=== PATIENT | male | born 1935 | race Caucasian/White ===

== ENCOUNTER 2018-05-20 16:29 | Observation (INO) | payer MEDICARE, OTHER, SELFPAY ==
--- NOTE | 2018-05-20 | DI.ECHO.S_ITS ---
[facility]---------+ [facility] +---------+ : : [address] : : : : [id number] : : : : Phone: [phone] Echocardiogram Report + + :Name: EDGAR FELIPE Study Date: 05/21/2018 Height: 73 in : :[facility] Weight: 224 lb: : Gender: Male BSA: 2.3 m2 : :: 1935 Age: 82 yrs : :Reason For Study: TIA : : Performed By: Felisha Abel : :Referring: LISA OLIVEIRA : + + Interpretation Summary The ejection fraction is estimated to be 60-65%. There is mild tricuspid regurgitation. The right ventricular systolic pressure is estimated to be at least 23 mmHg based on an estimated right atrial pressure of 3 mm Hg. The aortic arch is mildly enlarged. Compared to the prior echo report on 2011, there is no significant change. Procedure: A two-dimensional transthoracic echocardiogram with color flow and Doppler was performed. The study quality was technically adequate. Comparison is made with the echocardiogram of 04/02/2011. The heart rate ranged between 62-65 bpm during the study. Left Ventricle: Proximal septal thickening is noted. The left ventricle is normal in size, wall thickness, and systolic function without any focal wall motion abnormalities. The ejection fraction is estimated to be 60-65%. Right Ventricle: The right ventricle is normal size. Right ventricular systolic function is at the lower limits of normal. Atria: Both atria are normal in size. There is no Doppler evidence for an interatrial shunt. Mitral Valve: The mitral valve is normal in structure and function. There is trace mitral regurgitation. Aortic Valve: The aortic valve is trileaflet. The aortic valve is mildly calcified. There is trace aortic regurgitation. Tricuspid Valve: The tricuspid valve is normal in structure and function. There is mild tricuspid regurgitation. The right ventricular systolic pressure is estimated to be at least 23 mmHg based on an estimated right atrial pressure of 3 mm Hg. Pulmonic Valve: The pulmonic valve is not well seen, but is grossly normal. There is a trace or physiologic amount of pulmonic regurgitation. Great Vessels: The aortic root is mildly dilated. The ascending aorta is normal in size. The aortic arch is mildly enlarged. The pulmonary is not well visualized. The IVC is of normal diameter and collapses greater than 50% with a sniff. This suggests a low right atrial pressure of 3 mm Hg. Pericardium/ Pleura There is no pericardial effusion. There is no pleural effusion. MMode/2D Measurements & Calculations LVIDd: 4.7 cm LVOT diam: 2.2 cm LVIDs: 3.0 cm Ao root diam: 4.3 cm FS: 36.7 % asc Aorta Diam: 3.5 cm IVSd: 0.88 cm Ao Arch Diam (distal): 3.4 cm LVPWd: 0.86 cm LV guallpa. diameter/BSA (cm/m^2): 2.1 LV sys. diameter/BSA (cm/m^2): 1.3 LA A2 area: 19.1 cm2 RA long axis: 5.1 cm LA A4 area: 18.4 cm2 RA area: 15.8 cm2 LA length (vol): 6.1 cm RA vol: 41.9 ml LA vol: 48.9 ml RA : 18.6 ml/m2 LA vol index: 21.7 ml/m2 RVD1 (basal): 3.2 cm TAPSE: 1.8 cm Doppler Measurements & Calculations Ao V2 max: 99.9 cm/sec LVOT Max Colby: 74.4 cm/sec Ao V2 mean: 70.7 cm/sec LV V1 max P.2 mmHg Ao max P.0 mmHg LV V1 VTI: 18.3 cm Ao mean P.1 mmHg JANKI(I,D): 3.6 cm2 Ao V2 VTI: 20.0 cm JANKI(V,D): 2.9 cm2 sev ratio: 0.92 JANKI indexed to BSA (cm^2/m^2): 1.6 MV E max colby: 35.4 cm/sec TR max colby: 225.7 cm/sec MV A max colby: 82.4 cm/sec TR max P.4 mmHg MV E/A: 0.43 Med Peak E' Colby: 5.7 cm/sec E/E' med: 6.2 Lat Peak E' Colby: 5.2 cm/sec E/E' lat: 6.9 E/e' average: 6.6 MV dec time: 0.53 sec SV(LVOT): 72.3 ml Reading Physician:12:41 PM
--- NOTE | 2018-05-20 | DI.MRI.S_ITS ---
PROCEDURE: MR STROKE Pre- and post-contrast brain MRI, non-contrast brain MR angiogram, pre- and postcontrast neck MR angiogram INDICATIONS: Poss left lacunar stroke, TIA TECHNIQUE: Brain: Noncontrast axial T1 spin echo, axial T2 fast spin echo, sagittal and axial FLAIR, coronal T2 fast spin echo, axial gradient echo, axial diffusion and ADC through the brain. After the administration of contrast, axial 3D VIBE of the cranial vasculature and brain. Brain MRA: Non-contrast 3-D time of flight MR angiogram, with multiple nxuvbvc-ioqvwhdfb-scnlewvzze (MIP) reformats performed. Neck MRA: Axial and sagittal TruFISP through the neck. Coronal dynamic MR angiogram during administration of contrast in the arterial and venous phases, with 3-dimenstional vdgyxpn-ktxjpxbxd-aivqtcmbyd (MIP) reformats constructed from subtraction images. COMPARISON: [facility], , STROKE PROTOCOL, 12/11/2015, 11:33. FINDINGS: Image quality: Excellent. BRAIN: CSF spaces: Ventricles are normal in size and shape. Basal cisterns are patent. No extra-axial fluid collections. Brain: No intracranial bleeds or mass effects. Perdomo-white matter interface is normal. Diffusion weighted images show no acute ischemic insults. Moderate diffuse volume loss. Mild degree of patchy high FLAIR signal within the periventricular and subcortical white matter, consistent with small vessel ischemic disease. Brainstem appears normal. Normal intravascular flow voids are present. No abnormal intracranial enhancement. Skull and face: Calvarial marrow signal is normal. Orbits appear normal. Sinuses: Sinuses and mastoids are clear. BRAIN MR ANGIOGRAM: Anterior circulation: Intracranial internal carotid arteries are normal in size and enhancement. Right A1 segment is not seen, possibly congenitally absent. The flow within the paired anterior cerebral arteries is otherwise normal and symmetric. The flow within the middle cerebral arteries is normal and symmetric. The anterior communicating artery is seen. No stenoses, occlusions, or aneurysms. Posterior circulation: The visualized portions of the vertebral arteries demonstrate normal caliber, and join to form a normal appearing basilar artery. The flow within the posterior cerebral arteries is normal and symmetric. No stenoses, occlusions, or aneurysms. NECK MR ANGIOGRAM: Carotids: Great vessels demonstrate a conventional anatomy as they arise from the aortic arch. The origins of the common carotid arteries appear patent. The calibers and courses of both common carotid arteries are normal. The bifurcation regions appear normal bilaterally. The internal carotid arteries demonstrate normal course and caliber. Posterior circulation: The origins of the vertebral arteries appear patent. More superior portions of both vertebral arteries demonstrate normal course and caliber, and join to form a normal appearing basilar artery. Miscellaneous: Subclavian arteries appear patent. Pre-contrast images through the neck show no soft tissue abnormalities. IMPRESSION: BRAIN MRI: 1. No recent infarct. 2. Volume loss and small vessel ischemic disease. BRAIN MR ANGIOGRAM: Negative cerebral MR angiography. NECK MR ANGIOGRAM: 1. No internal carotid artery stenosis bilaterally. 2. Patent bilateral vertebral arteries. Dictated by: Amol Ashton M.D. on 05/21/2018 at 13:17 Approved by: Amol Ashton M.D. on 05/21/2018 at 13:22
[2018-05-20 16:38] VITALS: BP 195/99; PULSE 92; RESP 16; TEMP 37.7; O2SAT 94
--- NOTE | 2018-05-20 16:42 | ED_ITS ---
HPI - Neuro Symptoms/Deficit General Chief Complaint: Neuro Symptoms/Deficit Stated Complaint: not making any sense Time Seen by Provider: 05/20/18 16:40 Source: patient and family Mode of arrival: ambulatory Limitations: no limitations History of Present Illness HPI Narrative: Patient is an 82-year-old male. Here approximately 15-20 minutes after the onset of symptoms. He stated that he was talking on the phone with his grandson when he had a sudden onset of not being able to find his words and somewhat confused per his . She states that potentially his symptoms have improved a little bit but he is not back to ?normal? he denies any other associated symptoms. does report that he has had mini strokes in the past. Related Data Home Medications Medication Instructions Recorded Confirmed PreserVision AREDS 1 cap PO BID 05/20/18 05/20/18 aspirin 81 mg PO DAILY 05/20/18 05/20/18 Previous Rx's Medication Instructions Recorded lisinopril 20 mg tablet 20 mg PO DAILY #90 tab 03/22/18 Allergies Allergy/AdvReac Type Severity Reaction Status Date / Time caffeine Allergy Verified 05/20/18 16:38 prednisone Allergy Verified 05/20/18 16:38 Review of Systems Constitutional Denies fatigue, Denies fever(s), Denies headache(s) and Denies weakness Eyes Denies change in vision and Denies diplopia ENT Ears, Nose, Mouth, and Throat: Denies vertigo, Denies dizziness, Denies headache(s), Denies disequilibrium and Denies sore throat Cardiovascular Denies chest pain, Denies syncope, Denies palpitations and Denies dyspnea Respiratory Denies dyspnea Gastrointestinal Gastrointestinal: Denies abdominal pain, Denies nausea and Denies vomiting Musculoskeletal Denies myalgias, Denies arthralgias and Denies numbness Integumentary/Breasts Denies lesions and Denies rash Neurologic Reports abnormal speech, Denies confusion, Denies vertigo, Denies dizziness, Denies syncope, Denies headache(s), Denies numbness, Denies seizure-like activity, Denies paresthesias, Reports tremor(s), Denies disequilibrium and De nies weakness Comments: Problems finding words and slurring words Psychiatric Denies confusion Endocrine Denies fatigue and Denies palpitations Hematologic/Lymphatic Denies easy bleeding and Denies easy bruising Comments: Not on anticoagulation Allergic/Immunologic Denies urticaria PFSH Medical History Hypertension (Acute) TIA (transient ischemic attack) (Acute) Surgical History History of cardiac radiofrequency ablation (RFA) History of cataract removal with insertion of prosthetic lens Status post appendectomy Status post knee surgery Status post radical cystoprostatectomy Family History Father Hypertension Prostate ca Social History marital status: lives independently: Yes Family History Father Hypertension Prostate ca Social History marital status: lives independently: Yes Exam Initial Vital Signs Initial Vital Signs: Vital Signs Temperature 99.9 F H 05/20/18 16:38 Pulse Rate 92 H 05/20/18 16:38 Respiratory Rate 16 05/20/18 16:38 Blood Pressure 195/99 H 05/20/18 16:38 Pulse Oximetry 94 05/20/18 16:38 Const General: cooperative, comfortable, well developed, well groomed and No acute distress Orientation: alert, awake and oriented x3 HENMT Head: normal to inspection and normocephalic Nose: external nose normal Resp Effort & Inspection: normal respiratory effort Auscultation: clear to auscultation bilaterally Cardio Rate: regular rate Rhythm: regular rhythm Pulses: radial pulses present GI Inspection: non-distended Palpation: soft Skin Lesions: no lesions Rashes: no rashes Neuro General: alert, awake and oriented x3 Cranial Nerves: CN's II-XI intact bilaterally Cognition: normal cognition Speech: expressive aphasia Gait: normal gait Motor: muscle tone normal throughout Sensory Exam: no sensory deficits noted Coordination: xstnog-hf-rcxh test normal and pedu-ll-uimm test normal Extrem General: normal to inspection and capillary refill normal Psych Appearance: grossly normal and well kempt Mood: congruent mood Scores GCS Gabrielle coma scale eye opening: Spontaneous Gabrielle coma scale verbal response: Orientated Kelly coma scale motor response: Obey commands Gabrielle coma scale total score: 15 NIH Stroke Scale Level of Conciousness: Alert, keenly responsive Ask month/age: Answers both questions correctly. Open/close eyes, close hand: Performs both tasks correctly Best gaze horizontal: Normal Visual chaudhary: No visual loss Facial palsy: Normal symetrical movement Left arm drift: No drift for full 10 sec Right arm drift: No drift for full 10 sec Left leg drift: No drift for full 10 sec Right leg drift: No drift for full 10 sec Limb ataxia: Absent Sensory on face/arms/legs: Normal, no sensory loss Best language: Mild to moderate, slurs some words Dysarthria: Mild to mod,some slurring Extinction or inattention: No abnormality Total NIH Stroke scale score: 2 Course Orders Ordered: ED Orders 05/20/18 16:40 CT head/brain wo con Stat Basic Metabolic Panel Stat Complete Blood Count AUTO DIFF Stat Ethanol (ETOH) Stat Partial Thromboplastin Time Stat Prothrombin Time INR Stat Troponin I Stat 05/20/18 16:42 CT angio head and neck Stat 05/20/18 16:55 EKG-12 Lead Stat Sodium Chloride (Normal Saline 0.9%) 1,000 mls @ 150 mls/hr IV CONT CHRIS Last Admin: 05/20/18 16:48 Dose: 150 mls/hr Discontinued Medications Aspirin (Aspirin Chew) 243 mg PO NOW ONE Stop: 05/20/18 17:42 Last Admin: 05/20/18 17:45 Dose: 243 mg Vital Signs - 8 hr 05/20/18 16:38 05/20/18 16:58 05/20/18 17:11 Temperature 99.9 F H Pulse Rate 92 H 90 86 Respiratory Rate 16 16 16 Blood Pressure 195/99 H Blood Pressure [Right Arm] 179/82 H Pulse Oximetry 94 96 05/20/18 17:13 05/20/18 18:11 Temperature Pulse Rate 87 87 Respiratory Rate 16 16 Blood Pressure Blood Pressure [Right Arm] 168/87 H 152/73 H Pulse Oximetry 96 92 MDM - Neuro Symptoms/Deficit Lab Data Attestation: I reviewed the patient's lab results. Result diagrams: 05/20/18 16:40 05/20/18 16:40 Lab Results 05/20/18 05/20/18 05/20/18 Range/Units 16:40 16:40 16:40 WBC 11.4 H (4.5-11.0) X10^3/uL RBC 5.07 (4.5-5.9) X10^6/uL Hgb 16.2 (13.5-17.5) g/dL Hct 48.2 (41-53) % MCV 94.9 (80-100) fL MCH 31.9 (26-34) PG MCHC 33.6 (30-36) % RDW 13.0 (11.6-14.8) % Plt Count 276 (150-400) X10^3/uL Neut % (Auto) 61.0 (50-75) % Lymph % (Auto) 27.5 (25-40) % Gila % (Auto) 9.5 (3-14) % Eos % (Auto) 0.9 L (2-4) % Baso % (Auto) 1.1 (0-2) % Neut # (Auto) 6900 (2749-7059) /uL Lymph # (Auto) 3100 (1647-2783) /uL Gila # (Auto) 1100 H (0-900) /uL Eos # (Auto) 100 (0-450) /uL Baso # (Auto) 100 (0-100) /uL PT 10.8 (10.1-12.7) SECONDS INR 0.9 (0.9-1.3) APTT 32 (26.4-36.2) SECONDS Sodium 135 L (137-145) mmol/L Potassium 4.3 (3.4-5.1) mmol/L Chloride 97 L (98-107) mmol/L Carbon Dioxide 24 (22-32) mmol/L BUN 18 (9-20) mg/dL Creatinine 1.00 (0.66-1.25) mg/dL Estimated GFR > 60.0 (>60) mL/min BUN/Creatinine Ratio 18.0 (6-22) Glucose 95 (80-110) mg/dL Calcium 9.2 (8.4-10.2) mg/dL Troponin I < 0.012 (0.01-0.034) ng/mL Ethyl Alcohol 28 mg/dL Point of Care Testing Glucose POC [address] scan - head: Radiologist's impression: [place] [address] CT Scan Report Signed Patient: Dong Cummings WMR#: [id number] : 8Acct:[id number] Age/Sex: 82 / MDate of Service: 05/20/18 Loc: ED Accession Number: [id number] Procedure: CT head/brain wo con Ordering Provider: Prasanna Mcneil D.O. PROCEDURE: CT HEAD/BRAIN WO CON INDICATIONS: possible stroke TECHNIQUE: Noncontrast 4.5 mm thick angled axial sections acquired from the foramen magnum to the vertex, with coronal and sagittal reformats. For radiation dose reduction, the following was used: automated exposure control, adjustment of mA and/or kV according to patient size. COMPARISON: [facility], , STROKE PROTOCOL, 12/11/2015, 11:33. FINDINGS: Image quality: Excellent. CSF spaces: Basal cisterns are patent. No extra-axial fluid collections. The ventricles are symmetric in size and shape. Brain: No intracranial bleeds or masses. There is cerebral volume loss for age, with resultant ventricular and sulcal prominence. There are periventricular and deep white matter chronic small vessel ischemic changes. Old, small, bilateral basal pain lacunar infarcts. There is intracranial internal carotid artery atherosclerosis. Skull and face: Calvarium and visualized facial bones appear intact, without suspicious lesions. Sinuses: Visualized sinuses and mastoids are clear. IMPRESSION: 1. No acute intracranial disease process. 2. No intracranial hemorrhage. Dictated by: Aida Gloria MD, PhD on 05/20/2018 at 16:52 Approved by: Aida Gloria MD, PhD on 05/20/2018 at 16:54 CTA head and neck: Radiologist's impression: [place] [address] CT Scan Report Signed Patient: Dong Cummings WMR#: [id number] : 8Acct:[id number] Age/Sex: 82 / MDate of Service: 05/20/18 Loc: ED Accession Number: [id number] Procedure: CT angio head and neck Ordering Provider: Prasanna Mcneil D.O. PROCEDURE: CT ANGIO HEAD AND NECK INDICATIONS: Possible stroke. Speech difficulty. TECHNIQUE: After the administration of intravenous contrast, 1 mm thick sections acquired from the aortic arch through the [place] of [place]. Post-contrast 4.5 mm thick sections then re-acquired from the foramen magnum to the vertex. 3-dimensional lmbodbp-grbqpktfo-xiwambyfsa (MIP) and/or volume rendering reformats were acquired of the central intracranial vasculature and neck separately. COMPARISON: [facility], MR, STROKE PROTOCOL, 12/11/2015, 11:33. [facility], CT, CT HEAD/BRAIN WO CON, 05/20/2018, 16:42. FINDINGS: Image quality: Excellent. BRAIN: CSF spaces: There is mild cerebral volume loss with prominence of the ventricles and sulci. Basal cisterns are patent. No extra-axial fluid collections. Brain: No intracranial mass or mass effect. No hematoma collections. Perdomo- white matter interface appears preserved. There are periventricular and subcortical areas of hyperattenuation consistent with moderate chronic small vessel ischemic changes. A small focal hypodensity within the left iverson radiata is consistent with a prior lacunar infarct. Skull and face: Calvarium and facial bones appear intact, without suspicious lesions. Orbits appear normal. Sinuses: Sinuses and mastoids are clear. HEAD CT ANGIOGRAPHY: Anterior circulation: Intracranial internal carotid arteries are patent bilaterally. The anterior cerebral arteries are patent bilaterally. There is an absent A1 segment of the right anterior cerebral artery likely representing a developmental variant. The remainder of the right anterior cerebral artery is supplied through the anterior communicating artery from the left side. The middle cerebral arteries appear patent bilaterally. No high-grade stenosis, occlusion, discrete filling defects, or aneurysms identified. Posterior circulation: Visualized portions of the vertebral arteries demonstrate normal caliber, and join to form a patent basilar artery. The posterior cerebral arteries appear patent bilaterally. No high-grade stenosis, occlusion, discrete filling defects, or aneurysms identified. NECK CT ANGIOGRAPHY: Carotid system: The great vessels demonstrate conventional anatomy as they arise from the aortic arch. The origins of the common carotid arteries appear patent. The common carotid arteries demonstrate normal caliber and courses. The bifurcation regions are both widely patent. The internal carotid arteries demonstrate normal calibers and courses. Posterior circulation: The origins of the vertebral arteries both appear widely patent. The more superior extracranial portions of both vertebral arteries also demonstrate normal courses and calibers. They join to form a normal appearing basilar art adrien. Soft tissues: Visualized neck soft tissues demonstrate no suspicious abnormalities. Bones: No suspicious bony lesions. Visualized cervical spine demonstrates multilevel lfaj-gx-yleovpck degenerative disc disease and facet arthropathy. IMPRESSION: 1. No high-grade stenosis or occlusion of the central intracranial arteries for head and neck arteries. The carotid bulbs appear widely patent. 2. 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 The remainder of the right TERESA is supplied through the anterior communicating artery from the left. 3. Moderate chronic white matter small vessel ischemic changes and mild cerebral volume loss. There is a likely prior lacunar infarct in the left iverson radiata. Any quantitative measurements of stenosis were performed using NASCET criteria. Dictated by: Agus Quezada M.D. on 05/20/2018 at 16:19 Approved by: Agus Quezada M.D. on 05/20/2018 at 16:30 ECG Data Attestation: I personally reviewed and interpreted this ECG as follows: Prior ECG tracings: not available for review Interpretation: Sinus rhythm Second-degree AV block type 2 with 1 dropped beat One PVC Ventricular rate 86 Right bundle branch block No ST T wave changes MDM Narrative Medical decision making narrative: During his hospital stay his NIH went from 2 to 0. His agrees that all of his presenting symptoms have resolved. He took a baby aspirin prior to arrival. I gave him another 3 baby aspirin to make a full dose aspirin. Discussed the case with Dr. Goodrich with the hospitalist team who will admit the patient for a TIA workup. Discussed the admission with the patient and his . They expressed understanding and agreement. Discharge Plan Departure Patient Disposition: Admitted as Observation Clinical Impression: Transient cerebral ischemia Qualifiers: Transient cerebral ischemia type: unspecified Qualified Code(s): G45.9 - Transient cerebral ischemic attack, unspecified Hypertension Qualifiers: Hypertension type: unspecified Qualified Code(s): I10 - Essential (primary) hypertension
--- NOTE | 2018-05-20 16:47 | PC.NURSE ---
spouse reports, while he was on the phone, she noted that pt was having slurred speech. pt hx of tia 2 years ago. denies fever,coughing,vomiting or diarrhea pt on lisinopril 20mg and 81mg aspirin. nih negative, but spouse states, speech not his normal baseline. wt 104.2kg via bedscale.
[2018-05-20] MEDS: SODIUM CHLORIDE 0.9% 1,000 ML 150 ML IV (16:48)
[2018-05-20 16:49] LABS: Add Manual Diff / Slide Review NO; Basophils Absolute Auto 100 /uL (0-100); Basophils Percent Auto 1.1 % (0-2); Eosinophils Absolute Auto 100 /uL (0-450); Eosinophils Percent Auto 0.9 % (2-4); Hematocrit 48.2 % (41-53); Hemoglobin 16.2 g/dL (13.5-17.5); Lymphocytes Absolute Auto 3100 /uL (1100-4500); Lymphocytes Percent Auto 27.5 % (25-40); Mean Corpuscular HGB Conc 33.6 % (30-36); Mean Corpuscular Hemoglobin 31.9 PG (26-34); Mean Corpuscular Volume 94.9 fL (80-100); Monocytes Absolute Auto 1100 /uL (0-900); Monocytes Percent Auto 9.5 % (3-14); Neutrophils Absolute Auto 6900 /uL (1500-7000); Platelet Count 276 X10^3/uL (150-400); Red Blood Cell Count 5.07 X10^6/uL (4.5-5.9); White Blood Cell Count 11.4 X10^3/uL (4.5-11.0)
[2018-05-20 16:56] LABS: INR 0.9 (0.9-1.3); Prothrombin Time 10.8 SECONDS (10.1-12.7)
[2018-05-20 16:58] VITALS: BP 179/82; PULSE 90; RESP 16; O2SAT 96
[2018-05-20 16:58] LABS: PTT Partial Thromboplastin Tim 32 SECONDS (26.4-36.2)
[2018-05-20 17:00] LABS: Blood Urea Nitrogen 18 mg/dL (9-20); Calcium 9.2 mg/dL (8.4-10.2); Carbon Dioxide 24 mmol/L (22-32); Chloride 97 mmol/L (98-107); Estimated Glomerular Filt Rate > 60.0 mL/min (>60); Glucose 95 mg/dL (80-110); HEMOLYSIS < 15 (0-50); Potassium 4.3 mmol/L (3.4-5.1); Sodium 135 mmol/L (137-145)
[2018-05-20 17:03] LABS: Ethanol (ETOH) 28 mg/dL
[2018-05-20 17:11] VITALS: PULSE 86; RESP 16; O2SAT 98
[2018-05-20 17:12] LABS: Troponin I < 0.012 ng/mL (0.01-0.034)
[2018-05-20 17:13] VITALS: BP 168/87; PULSE 87; RESP 16; O2SAT 96
[2018-05-20] MEDS: ASPIRIN 81 MG TAB 243 MG PO (17:45)
[2018-05-20 18:11] VITALS: BP 152/73; PULSE 87; RESP 16; O2SAT 92
[2018-05-20 19:21] VITALS: BMI 29.6
[2018-05-20 20:00] VITALS: BP 159/74; PULSE 88; RESP 19; TEMP 36.7
[2018-05-20] MEDS: ENOXAPARIN 40 MG/0.4 ML SYRINGE SUBCUT (22:27)
[2018-05-21] VITALS: BP 145/70; PULSE 74; RESP 18; TEMP 36.9; O2SAT 97
--- NOTE | 2018-05-21 00:43 | PC.NURSE ---
Nasal swab for resp. panel collected & sent to the lab. Applied bilateral SCD's after 5 mins. he C/O that he will not be able to sleep. Requested to turn off his SCD's, instructed to do legs exercises q1 hr, x10 when he's awake. Will cont. POC & monitor.
[2018-05-21 01:04] LABS: Adenovirus Not Detected (Not Detect); Bordetella pertussis Not Detected (Not Detect); Chlamydophila pneumoniae Not Detected (Not Detect); Coronavirus 229E Not Detected (Not Detect); Coronavirus HKU1 Not Detected (Not Detect); Coronavirus NL 63 Not Detected (Not Detect); Coronavirus OC43 Not Detected (Not Detect); Human Metapneumovirus Not Detected (Not Detect); Human Rhinovirus/Enterovirus Not Detected (Not Detect); Influenza A Not Detected (Not Detect); Influenza B Not Detected (Not Detect); Mycoplasma pneumoniae Not Detected (Not Detect); Parainfluenza Virus 1 Not Detected (Not Detect); Parainfluenza Virus 2 Not Detected (Not Detect); Parainfluenza Virus 3 Not Detected (Not Detect); Parainfluenza Virus 4 Not Detected (Not Detect); Respiratory Syncytial Virus Not Detected (Not Detect)
--- NOTE | 2018-05-21 02:44 | P.HP_ITS ---
History of Present Illness Date Patient Seen: 05/20/18 Time Patient Seen: 19:45 Chief complaint: not making any sense Narrative: This is an 82-year-old male patient with a history of hypertension, arrhythmias, chronic neck pain, and prostate cancer status post prostatectomy who presents to the emergency room with an acute episode of confusion and difficulty word finding. The patient states he was talking to his grandson on the phone when he suddenly states he was talking ?gibberish? and became acutely confused. He reports an associated symptom blurring of vision but no diplopia or visual field cuts. Patient has had a history of macular degeneration which is been stable. The patient reports 1 previous episode of similar presentation that lasted only a few minutes occurring approximately 5 years ago. The patient reports no prodromal symptoms no recent illness or cold symptoms including fevers or chills, headaches or dizziness, nasal congestion or sore throat. He reports no complaints of chest pain or palpitations, shortness of breath or exertional dyspnea. He does have a large ventral hernia but denies abdominal pain, nausea or vomiting, constipation or diarrhea. The patient reports no difficulty urinating and has nocturia 3 times nightly. Patient arrived in the ER at 4:38 p.m. which time he is found to have a low- grade fever of 99.9, heart rate of 92 and hypertensive at 195/99 with respiratory rate of 16 and pulse oximetry of 94. The patient's blood pressure subsequently improved to 152/73 without intervention. By the time the patient has arrived at the ER which is 20 min post onset of symptoms the patient states are abating his initial NIH scale was 2 and on re-evaluation later was 0. The patient received aspirin for total of 325 mg as he is on 81 mg daily. He underwent a CT of the brain which was negative and a CT angio demonstrated moderate chronic white matter small-vessel ischemic changes and mild cerebral volume loss. It also identifies unlikely prior lacunar infarct in the left iverson radiata. Labs are evaluated with patient found to have a white count of 11.4 hematocrit of 16.2 and hematocrit 48.2 with platelets of 276. His coags were unremarkable and his troponin is negative at 0.012. On electrolytes he slightly low on his sodium 135 has good renal function with a BUN is 18 and creatinine 1.0 and nonfasting glucose of 95. Patient is admitted to the hospital for monitoring and workup TIA. Patient History Medical History Arrhythmia, atrial (Acute) Chronic neck pain (Acute) Hemorrhoids (Acute) Hypertension (Acute) TIA (transient ischemic attack) (Acute) Ventral hernia (Acute) Surgical History History of cardiac radiofrequency ablation (RFA) History of cataract removal with insertion of prosthetic lens Status post appendectomy Status post knee surgery Status post radical cystoprostatectomy Family History Father Hypertension Prostate ca Mother [place] chorea Sister Congestive heart failure Social History marital status: household members: spouse lives independently: Yes Smoking Status: Former smoker alcohol intake: current Family & Social History Social History: household members spouse Prior Living Arrangements RV lives independently Yes Safety & Behavioral: Feels Safe in Current Yes Environment Been Physically Hurt or No Threatened By a Person Suicidal Ideation Description None Suicide Plan Description No Plan Tobacco & Substance use: Smoking Status Former smoker alcohol intake current alcohol intake frequency 0-2 drinks per day Substance Use Type does not use Comment: The patient lives in a mobile home with his to whom he has been for 50 years. The patient's parents are post with his father having hypertension and prostate cancer and his mother [place] chorea. He has 1 sister who from heart failure and has to children both in good health. Occupation: Transition Manager, but builder Smoking: The patient reports smoking 1 pack per day for 22 years and quit 30 years ago Alcohol: Wine each evening Substance use: Patient denies recreation pharmaceuticals, herbal or cannabis products Advanced directives: patient wishes to be a full code and designates his Shaila as his surrogate decision maker. Meds Home Medications Medication Instructions Recorded Confirmed Type lisinopril 20 mg tablet 20 mg PO DAILY #90 tab 03/22/18 05/20/18 Rx PreserVision AREDS 1 cap PO BID 05/20/18 05/20/18 History aspirin 81 mg PO DAILY 05/20/18 05/20/18 History Allergies Allergy/AdvReac Type Severity Reaction Status Date / Time caffeine Allergy Verified 05/20/18 16:38 prednisone Allergy Verified 05/20/18 16:38 Review of Systems Review of Systems All systems reviewed & are unremarkable except as noted in HPI and below Exam Vital Signs (past 8 hours): - 05/20/18 20:00 05/21/18 00:00 Temperature 98.0 F 98.5 F Pulse Rate 88 74 Respiratory Rate 19 18 Blood Pressure 159/74 H 145/70 H Pulse Oximetry 97 Oxygen Delivery Method Room Air Narrative Exam Narrative: GENERAL APPEARANCE: well developed, well nourished, in no acute distress. HEAD: Normocephalic, symmetrical facies, no scalp lesions. EYES: pupils equal, round, reactive to light and accommodation, no ptosis, sclera non-icteric, extraocular movement intact without nystagmus EARS: normal external structures, no ear pain NOSE: sinuses non tender to percussion, no rhinorrhea ORAL CAVITY: mucosa moist without lesions or exudate, palate normal, tongue in midline. THROAT: normal, no erythema, no exudate, pharynx normal, uvula midline. NECK/THYROID: neck supple, no jugular venous distention, no carotid bruit, no thyromegaly, thyroid nontender, trachea midline. LYMPH NODES: no cervical or supraclavicular lymphadenopathy. SKIN: warm and dry, no suspicious lesions, no rashes, good turgor. HEART: regular rate and rhythm, no murmurs, rubs, gallops, brisk capillary refill, no edema LUNGS: Nonproductive cough is present, clear to auscultation bilaterally, no coarseness crackles or wheezing CHEST: Symmetrical movement, no accessory muscle use, no pain to AP and lateral compression. ABDOMEN: Soft, large ventral hernia evident on Valsalva, no epigastric or abdo pedro tenderness on palpation, no guarding or peritoneal signs, no organomegaly, no flank or suprapubic tenderness BACK: Normal curvature, nontender to palpation, no CVA tenderness on percussion EXTREMITIES: moves all extremities, strength is 5/5 and symmetrical, well perfused. NEUROLOGIC: AAO x4, visible left hand tremor, slight palpable right hand tremor, no dysarthria or facial asymmetry, motor strength normal upper and lower extremities, sensory exam intact to light touch, cranial nerves II-XII grossly intact, no pronator drift, NIH score 0 PSYCH: alert, cognitive function intact, good eye contact, stable mood with congruent affect Objective Labs Result Diagrams: 05/20/18 16:40 05/20/18 16:40 Labs: Laboratory Results - last 24 hr 05/20/18 05/20/18 05/20/18 16:40 16:40 16:40 WBC 11.4 H RBC 5.07 Hgb 16.2 Hct 48.2 MCV 94.9 MCH 31.9 MCHC 33.6 RDW 13.0 Plt Count 276 Neut % (Auto) 61.0 Lymph % (Auto) 27.5 [place] % (Auto) 9.5 Eos % (Auto) 0.9 L Baso % (Auto) 1.1 Neut # (Auto) 6900 Lymph # (Auto) 3100 [place] # (Auto) 1100 H Eos # (Auto) 100 Baso # (Auto) 100 PT 10.8 INR 0.9 APTT 32 Sodium 135 L Potassium 4.3 Chloride 97 L Carbon Dioxide 24 BUN 18 Creatinine 1.00 Estimated GFR > 60.0 BUN/Creatinine Ratio 18.0 Glucose 95 Calcium 9.2 Troponin I < 0.012 Ethyl Alcohol 28 Chlamy pneumoniae PCR Adenovirus (PCR) B.parapertussis DNA PCR Coronavirus OC43 (PCR) Coronavirus HKU1 (PCR) Coronavirus 229E (PCR) Coronavirus NL63 (PCR) Human Metapneumovir PCR Influenza Type A (PCR) Influenza Type B (PCR) M. pneumoniae (PCR) Parainfluenza 1 (PCR) Parainfluenza 2 (PCR) Parainfluenza 3 (PCR) Parainfluenza 4 (PCR) RSV (PCR) Entero/Rhino (PCR) 05/20/18 23:45 WBC RBC Hgb Hct MCV MCH MCHC RDW Plt Count Neut % (Auto) Lymph % (Auto) [place] % (Auto) Eos % (Auto) Baso % (Auto) Neut # (Auto) Lymph # (Auto) [place] # (Auto) Eos # (Auto) Baso # (Auto) PT INR APTT Sodium Potassium Chloride Carbon Dioxide BUN Creatinine Estimated GFR BUN/Creatinine Ratio Glucose Calcium Troponin I Ethyl Alcohol Chlamy pneumoniae PCR Not detected Adenovirus (PCR) Not detected B.parapertussis DNA PCR Not detected Coronavirus OC43 (PCR) Not detected Coronavirus HKU1 (PCR) Not detected Coronavirus 229E (PCR) Not detected Coronavirus NL63 (PCR) Not detected Human Metapneumovir PCR Not detected Influenza Type A (PCR) Not detected Influenza Type B (PCR) Not detected M. pneumoniae (PCR) Not detected Parainfluenza 1 (PCR) Not detected Parainfluenza 2 (PCR) Not detected Parainfluenza 3 (PCR) Not detected Parainfluenza 4 (PCR) Not detected RSV (PCR) Not detected Entero/Rhino (PCR) Not detected Assessment & Plan Assessment & Plan narrative: Patient is admitted to the hospital for evaluation and monitoring for TIA. 1. Transitory ischemic attack, acute -patient with confusion and difficulty word finding onset 20 min prior to arrival and resolving while in the ER. Patient's elevates patient is back to baseline -recurrent with previous episode approximately 5 years ago spontaneous resolving in minutes for which he received no treatment or diagnosis -NIH score is 0, ABCD2 score is 4 -CT scan identifies a likely prior lacunar infarct in the left iverson radiata, will obtain MR stroke screening in the morning -will obtain echocardiogram. 2. Hypertensive emergency, acute -blood pressure on arrival is 195/99 with associated neurological deficits -patient's blood pressure moderated while in the ER without treatment to 152/73 -will continue patient's home medication of lisinopril 20 mg daily 3. Cough, present on admission, acute -patient with dry nonproductive cough a mildly elevated temperature on arrival in the ER of 99.9 -no pulmonary findings are identified and no complaints URI symptoms -will obtain respiratory PCR panel 4. Neck pain, chronic -patient with upper neck pain aching in character and chronic in nature -patient has received no specific treatment -consider baclofen 10 mg 1-3 times daily. 5. Ventral hernia, chronic -uncomplicated without pain 6. Prostate cancer, chronic -status post prostatectomy without evidence of recurrence The patient is admitted to the hospital due to the severity of symptoms need for monitoring and risk for complications. The patient is admitted observation with expected length stay less than 2 midnights. Time Spent With Patient Time with patient: 25 - 35 minutes Scores ABCD2 Age >= 60 years: yes Initial BP. Either SBP >= 140 or DBP >= 90.: yes Clinical features of the TIA: other symptoms Duration of symptoms: >= 60 minutes History of diabetes: no ABCD2 Score: 4 NIHSS Level of Conciousness: Alert, keenly responsive Ask month/age: Answers both questions correctly. Open/close eyes, close hand: Performs both tasks correctly Best gaze horizontal: Normal Visual chaudhary: No visual loss Facial palsy: Normal symetrical movement Left arm drift: No drift for full 10 sec Right arm drift: No drift for full 10 sec Left leg drift: No drift for full 10 sec Right leg drift: No drift for full 10 sec Limb ataxia: Absent Sensory on face/arms/legs: Normal, no sensory loss Best language: No aphasia, normal Dysarthria: Normal Extinction or inattention: No abnormality Total NIH Stroke scale score: 0
[2018-05-21 04:00] VITALS: BP 152/79; PULSE 79; RESP 18; TEMP 36.8
[2018-05-21] MEDS: PANTOPRAZOLE 20 MG TABLET PO (06:28)
[2018-05-21 06:54] LABS: Add Manual Diff / Slide Review NO; Basophils Absolute Auto 100 /uL (0-100); Basophils Percent Auto 0.8 % (0-2); Eosinophils Absolute Auto 100 /uL (0-450); Eosinophils Percent Auto 2.2 % (2-4); Hematocrit 43.6 % (41-53); Hemoglobin 14.8 g/dL (13.5-17.5); Lymphocytes Absolute Auto 1800 /uL (1100-4500); Mean Corpuscular Hemoglobin 32.1 PG (26-34); Mean Corpuscular Volume 94.4 fL (80-100); Monocytes Absolute Auto 800 /uL (0-900); Neutrophils Absolute Auto 3500 /uL (1500-7000); Platelet Count 221 X10^3/uL (150-400); Red Blood Cell Count 4.62 X10^6/uL (4.5-5.9); Red Cell Distribution Width 12.8 % (11.6-14.8); White Blood Cell Count 6.3 X10^3/uL (4.5-11.0)
[2018-05-21 07:00] VITALS: O2SAT 97
[2018-05-21 07:02] LABS: Creatine Kinase 145 U/L (55-170)
[2018-05-21 07:04] LABS: BUN Creatinine Ratio 16.3 (6-22); Blood Urea Nitrogen 13 mg/dL (9-20); Carbon Dioxide 29 mmol/L (22-32); Chloride 97 mmol/L (98-107); Cholesterol 188 mg/dL (140-199); Estimated Glomerular Filt Rate > 60.0 mL/min (>60); Glucose 95 mg/dL (80-110); HDL Cholesterol 29 mg/dL (40-60); HEMOLYSIS < 15 (0-50); LDL Cholesterol Calculated 83 mg/dL (<100); Potassium 4.3 mmol/L (3.4-5.1); Sodium 133 mmol/L (137-145); Triglycerides 382 mg/dL (35-150)
[2018-05-21 07:15] LABS: Troponin I < 0.012 ng/mL (0.01-0.034)
[2018-05-21 07:17] LABS: CKMB % Relative Index 1.9 % (1.5-5.0); Creatine Kinase MB 2.69 ng/mL (<2.37)
--- NOTE | 2018-05-21 07:19 | PM.PN.1 ---
Subjective Date Patient Seen: 05/21/18 Interval history: Dong Cummings is an 82-year-old male with a past medical history significant for hypertension, tachyarrhythmias, chronic neck pain, and prostate cancer status post prostatectomy who presented to the ED with an acute episode of confusion and difficulty word finding and admitted for CVA rule out. The patient is resting in bed comfortably and in no acute distress. He or she denies headache, ear pain, rhinitis, sore throat, cough, shortness of breath, chest pain, abdominal pain, nausea, vomiting, fever, chills, dysuria, diarrhea or constipation. He or she is voiding and eliminating without difficulty. He or she is up ambulating without or with assistance. Exam Vital Signs (past 8 hours): - 05/21/18 00:00 05/21/18 04:00 Temperature 98.5 F 98.2 F Pulse Rate 74 79 Respiratory Rate 18 18 Blood Pressure 145/70 H 152/79 H Pulse Oximetry 97 Oxygen Delivery Method Room Air Narrative Exam Narrative: General: No acute distress, well-developed, well-nourished, appropriately interactive HEENT: Normocephalic, atraumatic. External ears without defect. Pupils equal, round, and reactive to light and accommodation. Anicteric sclerae, moist conjunctivae, and no lid lag. Oropharynx free of erythema and cobble stoning with moist mucosa. Neck: Supple with full range of motion. No jugular venous distension. No bruits. No lymphadenopathy or thyromegaly. Cardiovascular: Regular rate and rhythm without murmurs, rubs, or gallops appreciated Pulmonary: Clear to auscultation bilaterally without crackles, wheezes, or rhonchi. Normal respiratory effort with no use of accessory muscles. Abdomen: Bowel tones present. Soft, nontender, nondistended. No hepatosplenomegaly or masses appreciated. Extremities: No clubbing, cyanosis, or edema. Skin: Normal temperature, turgor, and texture; no rash, ulcers, or subcutaneous nodules appreciated. Neurological: Cranial nerves grossly intact. Normal muscle strength, tone, and bulk. Reflexes, coordination, and sensory function within normal limits. No known gait impairment. Psychiatric: Normal mood and affect. Alert and oriented to person, place, and time. Objective Labs Result Diagrams: 05/21/18 06:25 05/20/18 16:40 Labs: Laboratory Results - last 24 hr 05/20/18 05/20/18 05/20/18 16:40 16:40 16:40 WBC 11.4 H RBC 5.07 Hgb 16.2 Hct 48.2 MCV 94.9 MCH 31.9 MCHC 33.6 RDW 13.0 Plt Count 276 Neut % (Auto) 61.0 Lymph % (Auto) 27.5 [place] % (Auto) 9.5 Eos % (Auto) 0.9 L Baso % (Auto) 1.1 Neut # (Auto) 6900 Lymph # (Auto) 3100 [place] # (Auto) 1100 H Eos # (Auto) 100 Baso # (Auto) 100 PT 10.8 INR 0.9 APTT 32 Sodium 135 L Potassium 4.3 Chloride 97 L Carbon Dioxide 24 BUN 18 Creatinine 1.00 Estimated GFR > 60.0 BUN/Creatinine Ratio 18.0 Glucose 95 Calcium 9.2 Troponin I < 0.012 Ethyl Alcohol 28 Chlamy pneumoniae PCR Adenovirus (PCR) B.parapertussis DNA PCR Coronavirus OC43 (PCR) Coronavirus HKU1 (PCR) Coronavirus 229E (PCR) Coronavirus NL63 (PCR) Human Metapneumovir PCR Influenza Type A (PCR) Influenza Type B (PCR) M. pneumoniae (PCR) Parainfluenza 1 (PCR) Parainfluenza 2 (PCR) Parainfluenza 3 (PCR) Parainfluenza 4 (PCR) RSV (PCR) Entero/Rhino (PCR) 05/20/18 05/21/18 23:45 06:25 WBC 6.3 RBC 4.62 Hgb 14.8 Hct 43.6 MCV 94.4 MCH 32.1 MCHC 34.0 RDW 12.8 Plt Count 221 Neut % (Auto) 56.0 Lymph % (Auto) 29.0 [place] % (Auto) 12.0 Eos % (Auto) 2.2 Baso % (Auto) 0.8 Neut # (Auto) 3500 Lymph # (Auto) 1800 [place] # (Auto) 800 Eos # (Auto) 100 Baso # (Auto) 100 PT INR APTT Sodium Potassium Chloride Carbon Dioxide BUN Creatinine Estimated GFR BUN/Creatinine Ratio Glucose Calcium Troponin I Ethyl Alcohol Chlamy pneumoniae PCR Not detected Adenovirus (PCR) Not detected B.parapertussis DNA PCR Not detected Coronavirus OC43 (PCR) Not detected Coronavirus HKU1 (PCR) Not detected Coronavirus 229E (PCR) Not detected Coronavirus NL63 (PCR) Not detected Human Metapneumovir PCR Not detected Influenza Type A (PCR) Not detected Influenza Type B (PCR) Not detected M. pneumoniae (PCR) Not detected Parainfluenza 1 (PCR) Not detected Parainfluenza 2 (PCR) Not detected Parainfluenza 3 (PCR) Not detected Parainfluenza 4 (PCR) Not detected RSV (PCR) Not detected Entero/Rhino (PCR) Not detected Assessment & Plan Assessment & Plan narrative: Dong Cummings is an 82-year-old male with a past medical history significant for hypertension, tachyarrhythmias, chronic neck pain, and prostate cancer status post prostatectomy who presented to the ED with an acute episode of confusion and difficulty word finding and admitted for CVA rule out. 1. Probable acute TIA, present on admission. Resolved. -Patient with confusion and difficulty word finding onset 20 min prior to arrival and resolved in ED. -Recurrent with previous episode approximately 5 years ago spontaneous resolving in minutes for which he received no treatment or diagnosis -NIH score is 0, ABCD2 score is 4 -CT scan identifies a likely prior lacunar infarct in the left iverson radiata. Ordered MR stroke protocol, pending. -Ordered echocardiogram, pending. 2. Hypertensive emergency, acute -Blood pressure on arrival is 195/99 with associated neurological deficits. -Patient's blood pressure moderated while in the ER without treatment to 152/73. -Continue patient's home medication of lisinopril 20 mg daily. 3. Acute cough, present on admission. Active. -Patient with dry nonproductive cough a mildly elevated temperature on arrival in the ER of 99.9. -No pulmonary findings are identified and no complaints URI symptoms. -Respiratory PCR panel negative. 4. Neck pain, chronic , present on admission. Stable. -Patient with upper neck pain aching in character and chronic in nature without treatment. -Consider baclofen 10 mg 1-3 times daily. 5. Ventral hernia, chronic, present on admission. Stable. -Uncomplicated without pain and easily reducible. 6. History of prostate cancer status post prostatectomy. -No evidence of recurrence. Disposition:
[2018-05-21 08:00] VITALS: BP 127/64; PULSE 84; RESP 16; TEMP 36.9; O2SAT 94
[2018-05-21] MEDS: ENOXAPARIN 40 MG/0.4 ML SYRINGE SUBCUT (08:23)
[2018-05-21] MEDS: LISINOPRIL 20 MG TABLET PO (08:25)
[2018-05-21] MEDS: ACETAMINOPHEN 325 MG TABLET 650 MG PO (08:26)
[2018-05-21] MEDS: SODIUM CHLORIDE 0.9% FLUSH 10 ML IV (08:26)
[2018-05-21] MEDS: ASPIRIN EC 81 MG TABLET PO (08:26)
[2018-05-21 08:51] VITALS: RESP 16
--- NOTE | 2018-05-21 08:56 | PC.NURSE ---
PT DENIES PAIN OTHER THAN HIS CHRONIC NECK DISCOMFORT- MEDICATED WITH ACETAMINOPHEN FOR THIS - WHICH HAS BEEN EFFECTIVE. 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
--- NOTE | 2018-05-21 11:57 | PC.NURSE ---
PT RETURNED FROM MRI/ECHO - STILL NO C/O ANY DIFFICULTIES
[2018-05-21 12:11] VITALS: BP 144/72; PULSE 88; RESP 18; TEMP 36.8; O2SAT 96
--- NOTE | 2018-05-21 14:35 | P.DS_ITS ---
History of Present Illness Date Patient Seen: 05/21/18 Chief complaint: not making any sense Narrative: Written by eFrmin MÉNDEZ: This is an 82-year-old male patient with a history of hypertension, arrhythmias, chronic neck pain, and prostate cancer status post prostatectomy who presents to the emergency room with an acute episode of confusion and difficulty word finding. The patient states he was talking to his grandson on the phone when he suddenly states he was talking ?gibberish? and became acutely confused. He reports an associated symptom blurring of vision but no diplopia or visual field cuts. Patient has had a history of macular degeneration which is been stable. The patient reports 1 previous episode of similar presentation that lasted only a few minutes occurring approximately 5 years ago. The patient reports no prodromal symptoms no recent illness or cold symptoms including fevers or chills, headaches or dizziness, nasal congestion or sore throat. He reports no complaints of chest pain or palpitations, shortness of breath or exertional dyspnea. He does have a large ventral hernia but denies abdominal pain, nausea or vomiting, constipation or diarrhea. The patient reports no difficulty urinating and has nocturia 3 times nightly. Patient arrived in the ER at 4:38 p.m. which time he is found to have a low- grade fever of 99.9, heart rate of 92 and hypertensive at 195/99 with respiratory rate of 16 and pulse oximetry of 94. The patient's blood pressure subsequently improved to 152/73 without intervention. By the time the patient has arrived at the ER which is 20 min post onset of symptoms the patient states are abating his initial NIH scale was 2 and on re-evaluation later was 0. The patient received aspirin for total of 325 mg as he is on 81 mg daily. He underwent a CT of the brain which was negative and a CT angio demonstrated moderate chronic white matter small-vessel ischemic changes and mild cerebral volume loss. It also identifies unlikely prior lacunar infarct in the left iverson radiata. Labs are evaluated with patient found to have a white count of 11.4 hematocrit of 16.2 and hematocrit 48.2 with platelets of 276. His coags were unremarkable and his troponin is negative at 0.012. On electrolytes he slightly low on his sodium 135 has good renal function with a BUN is 18 and creatinine 1.0 and nonfasting glucose of 95. Patient is admitted to the hospital for monitoring and workup TIA. Discharge Providers Date of admission: 05/20/18 19:04 Discharge Date: 05/21/18 Primary care physician: Ang Lay MD Consults: 05/20/18 21:30 Consult to Discharge Planning Routine Comment: Discharge provider: Shani Goodrich DO Summary Discharge Diagnosis: 1. Probable acute TIA, present on admission. Resolved. 2. Acute hypertensive emergency with chronic hypertension, present on admission. Hypertensive emergency resolved. 3. Second-degree type 2 AV block, chronic, present on admission. Stable. 4. Hyperlipidemia, chronic, present on admission. Stable. 5. Cough, present on admission. Stable. 6. Neck pain, chronic, present on admission. Stable. 7. Ventral hernia, chronic, present on admission. Stable. 8. History of prostate cancer status post prostatectomy. Hospital Course: Dong Cummings is an 82-year-old male with a past medical history significant for hypertension, tachyarrhythmias, chronic neck pain, and prostate cancer status post prostatectomy who presented to the ED with an acute episode of confusion and difficulty word finding and admitted for CVA rule out. 1. Probable acute TIA, present on admission. Resolved. -Patient with confusion and difficulty word finding onset 20 min prior to arrival and resolved in ED. Recurrent with previous episode approximately 5 years ago that spontaneously resolved in minutes for which he did not seek medical care. -Etiology likely probable TIA versus hypertensive emergency leading to neurological deficits versus his symptomatic second-degree type 2 AV block. -NIH score is 0, ABCD2 score is 4. -fasting lipid panel demonstrated: Total cholesterol 188, triglycerides 382, LDL 83, HDL 29. Recommended lifestyle modification including: diet and exercise which was discussed in depth, increased omega-3 in diet, and started atorvastatin as below. -Echocardiogram demonstrated normal LV and RV function with EF of 60-65% and mild tricuspid regurgitation. No significant change since 2011. -CT brain without contrast did not demonstrate any acute intracranial abnormalities. -CTA and brain MR stroke protocol did not demonstrate any acute ischemic stroke or intracranial or carotid/vertebral arterial stenosis. -Continue aspirin 81 mg daily and started atorvastatin 20 mg daily at bedtime for stroke prophylaxis. Recommended close outpatient follow-up and LFTs in 1 month per PCP. 2. Acute hypertensive emergency with chronic hypertension, present on admission. Hypertensive emergency resolved. -Blood pressure on arrival is 195/99 with associated neurological deficits. Patient's blood pressure moderated while in the ER without treatment to 152/73. -Continued patient's home medication of lisinopril 20 mg daily. Patient reports white coat syndrome. Recommend close blood pressure monitoring outpatient and/or ambulatory blood pressure monitor per PCP. 3. Second-degree type 2 AV block, chronic, present on admission. Stable. -Patient did not have any return of neurological deficits and was not symptomatic of second-degree type 2 AV block. -patient has a history of tachyarrhythmia status post ablation several years ago. -Recommended referral to Cardiology outpatient for further workup and treatment per PCP. 4. Hyperlipidemia, chronic, present on admission. Stable. -Fasting lipid panel as above. -Started atorvastatin 20 mg daily at bedtime. May be increased per risk stratification in future. 5. Cough, present on admission. Stable. -Patient with dry nonproductive cough and mildly elevated temperature on arrival in the ER of 99.9. No pulmonary findings are identified and no complaints URI symptoms. Respiratory PCR panel negative. -Differential diagnosis is extensive and includes: GERD versus seasonal allergies versus asthma. No CHF per echo. 5. Neck pain, chronic, present on admission. Stable. -Patient with upper neck pain aching in character and chronic in nature without treatment. -Consider outpatient treatment with a muscle relaxer such as methocarbamol or baclofen. 6. Ventral hernia, chronic, present on admission. Stable. -Uncomplicated without pain and easily reducible. 7. History of prostate cancer status post prostatectomy. -No evidence of recurrence. Status at Discharge Functional status at discharge: independent ambulation Overall status at discharge: patient is back to baseline Exam Vital Signs (past 8 hours): - 05/21/18 07:00 05/21/18 08:00 05/21/18 08:51 Temperature 98.5 F Pulse Rate 84 Respiratory Rate 16 16 Blood Pressure 127/64 Pulse Oximetry 97 94 05/21/18 12:11 Temperature 98.2 F Pulse Rate 88 Respiratory Rate 18 Blood Pressure 144/72 H Pulse Oximetry 96 Oxygen Delivery Method Room Air Oxygen Flow Rate 0 Narrative Exam Narrative: General: Elderly gentleman sitting in bedside chair and in no acute distress, well-developed, well-nourished, appropriately interactive. HEENT: Normocephalic, atraumatic. External ears without defect. Pupils equal, round, and reactive to light. Anicteric sclerae, moist conjunctivae, and no lid lag. Neck: Supple with full range of motion. No jugular venous distension. No bruits. No lymphadenopathy or thyromegaly. Cardiovascular: Regular rate and rhythm without murmurs, rubs, or gallops appreciated Pulmonary: Clear to auscultation bilaterally without crackles, wheezes, or rhonchi. Normal respiratory effort with no use of accessory muscles. Abdomen: Soft, bowel sounds present, nontender, nondistended. No hepatosplenomegaly or masses appreciated. Extremities: No clubbing, cyanosis, or edema. Skin: Normal temperature, turgor, and texture; no rash, ulcers, or subcutaneous nodules appreciated. Neurological: Cranial nerves grossly intact. Normal muscle strength, tone, and bulk. Reflexes, coordination, and sensory function within normal limits. No known gait impairment. Cerebellar function intact. No Babinski. Speech clear and normal. Psychiatric: Normal mood and affect. Alert and oriented to person, place, and time. Objective Labs Result Diagrams: 05/21/18 06:25 05/21/18 06:25 Labs: Laboratory Results - last 24 hr 05/20/18 05/20/18 05/20/18 16:40 16:40 16:40 WBC 11.4 H RBC 5.07 Hgb 16.2 Hct 48.2 MCV 94.9 MCH 31.9 MCHC 33.6 RDW 13.0 Plt Count 276 Neut % (Auto) 61.0 Lymph % (Auto) 27.5 Robertson % (Auto) 9.5 Eos % (Auto) 0.9 L Baso % (Auto) 1.1 Neut # (Auto) 6900 Lymph # (Auto) 3100 Robertson # (Auto) 1100 H Eos # (Auto) 100 Baso # (Auto) 100 PT 10.8 INR 0.9 APTT 32 Sodium 135 L Potassium 4.3 Chloride 97 L Carbon Dioxide 24 BUN 18 Creatinine 1.00 Estimated GFR > 60.0 BUN/Creatinine Ratio 18.0 Glucose 95 Calcium 9.2 Total Creatine Kinase CK-MB (CK-2) CK-MB (CK-2) Rel Index Troponin I < 0.012 Triglycerides Cholesterol LDL Cholesterol, Calc HDL Cholesterol Ethyl Alcohol 28 Chlamy pneumoniae PCR Adenovirus (PCR) B.parapertussis DNA PCR Coronavirus OC43 (PCR) Coronavirus HKU1 (PCR) Coronavirus 229E (PCR) Coronavirus NL63 (PCR) Human Metapneumovir PCR Influenza Type A (PCR) Influenza Type B (PCR) M. pneumoniae (PCR) Parainfluenza 1 (PCR) Parainfluenza 2 (PCR) Parainfluenza 3 (PCR) Parainfluenza 4 (PCR) RSV (PCR) Entero/Rhino (PCR) 05/20/18 05/21/18 05/21/18 23:45 06:25 06:25 WBC 6.3 RBC 4.62 Hgb 14.8 Hct 43.6 MCV 94.4 MCH 32.1 MCHC 34.0 RDW 12.8 Plt Count 221 Neut % (Auto) 56.0 Lymph % (Auto) 29.0 Robertson % (Auto) 12.0 Eos % (Auto) 2.2 Baso % (Auto) 0.8 Neut # (Auto) 3500 Lymph # (Auto) 1800 Robertson # (Auto) 800 Eos # (Auto) 100 Baso # (Auto) 100 PT INR APTT Sodium 133 L Potassium 4.3 Chloride 97 L Carbon Dioxide 29 BUN 13 Creatinine 0.80 Estimated GFR > 60.0 BUN/Creatinine Ratio 16.3 Glucose 95 Calcium 9.0 Total Creatine Kinase CK-MB (CK-2) CK-MB (CK-2) Rel Index Troponin I Triglycerides 382 H Cholesterol 188 LDL Cholesterol, Calc 83 HDL Cholesterol 29 L Ethyl Alcohol Chlamy pneumoniae PCR Not detected Adenovirus (PCR) Not detected B.parapertussis DNA PCR Not detected Coronavirus OC43 (PCR) Not detected Coronavirus HKU1 (PCR) Not detected Coronavirus 229E (PCR) Not detected Coronavirus NL63 (PCR) Not detected Human Metapneumovir PCR Not detected Influenza Type A (PCR) Not detected Influenza Type B (PCR) Not detected M. pneumoniae (PCR) Not detected Parainfluenza 1 (PCR) Not detected Parainfluenza 2 (PCR) Not detected Parainfluenza 3 (PCR) Not detected Parainfluenza 4 (PCR) Not detected RSV (PCR) Not detected Entero/Rhino (PCR) Not detected 05/21/18 06:25 WBC RBC Hgb Hct MCV MCH MCHC RDW Plt Count Neut % (Auto) Lymph % (Auto) Robertson % (Auto) Eos % (Auto) Baso % (Auto) Neut # (Auto) Lymph # (Auto) Robertson # (Auto) Eos # (Auto) Baso # (Auto) PT INR APTT Sodium Potassium Chloride Carbon Dioxide BUN Creatinine Estimated GFR BUN/Creatinine Ratio Glucose Calcium Total Creatine Kinase 145 CK-MB (CK-2) 2.69 H CK-MB (CK-2) Rel Index 1.9 Troponin I < 0.012 Triglycerides Cholesterol LDL Cholesterol, Calc HDL Cholesterol Ethyl Alcohol Chlamy pneumoniae PCR Adenovirus (PCR) B.parapertussis DNA PCR Coronavirus OC43 (PCR) Coronavirus HKU1 (PCR) Coronavirus 229E (PCR) Coronavirus NL63 (PCR) Human Metapneumovir PCR Influenza Type A (PCR) Influenza Type B (PCR) M. pneumoniae (PCR) Parainfluenza 1 (PCR) Parainfluenza 2 (PCR) Parainfluenza 3 (PCR) Parainfluenza 4 (PCR) RSV (PCR) Entero/Rhino (PCR) Discharge Plan Discharge Plan Patient Disposition: Home Discharge comment: You are being discharged home. Your MRI did not demonstrate stroke or any occluded vessels. Your lipid panel demonstrated high triglycerides for which lifestyle modification including: diet and exercise are mainstays of treatment as discussed. Your good cholesterol or HDL was low and recommend increasing amount of good fat or [place] 3 you consume or taking an gepo-[id number] supplement. You were started on atorvastatin 20 mg daily at bedtime in addition to aspirin 81 mg daily for stroke prevention. Please f ollow-up with your PCP at your scheduled appointment regarding your hospitalization and additional lab work to monitor the atorvastatin you were started on. Recommend you follow up with Cardiology regarding your second- degree type second degree AV block as you may need a pacemaker in the future. A lso recommend you discuss your blood pressure and monitor it closely (consider ambulatory blood pressure monitoring) as you may need additional medication to prevent high blood pressure. Please cut back on drinking alcohol to 2 glasses or less a night. Discharge Med Rec/Prescriptions Prescriptions: New atorvastatin 20 mg tablet 20 mg PO BEDTIME Qty: 30 RF: 0 Continued lisinopril 20 mg tablet 20 mg PO DAILY Qty: 90 RF: 0 aspirin 81 mg Tablet,Delayed Release (Dr/Ec) 81 mg PO DAILY RF: 0 PreserVision AREDS 1 cap PO BID RF: 0 Follow up/Referrals: Ang Lay MD [Primary Care Provider] - 1 Week Provider Discharge Instructions Diet: Low-fat, Low-sodium and Low-cholesterol Visit Report/Discharge Packet Instructions: The Mediterranean Diet and Good Health, DI for Transient Ischemic Attack, Mediterranean Diet May Reduce the Risk of Stroke in People with High Risk o Discharge Data Primary Care Provider: Ang Lay Attending Provider: Shani Goodrich Admit Date/Time: 05/20/18 19:04 Discharges patient from system. Discharge Date/Time: 05/21/18 14:48
--- NOTE | 2018-05-21 14:45 | PC.NURSE ---
PT DISCHARGED TO HOME WITH NEW RX FOR ATORVASTATIN AND REVIEWED THIS WELL DISCHARGE PLAN WITH BOTH PT AND HIS - DECLINED TO HAVE HOSPITAL ESCORT
--- NOTE | 2018-05-21 15:33 | CM.IDA ---
Discharge Planning/Care Management CM Discharge Assessment Start: 05/21/18 15:26 Freq: Status: Active Protocol: Document 05/21/18 15:26 LEIGH ANN (Rec: 05/21/18 15:32 LEIGH ANN [id number]) Discharge Planning Assessment Assigned Formulator Compounder DIANE Beaver DPOA/Assigned Designee Name Shaila Cummings, spouse Contact Information [phone] or [phone] Advance Directives? No History Provided By Patient Medical Record Prior Living Arrangements RV Household Members spouse Type of transporation used prior to Drives own vehicle admit Independent with ADL's Yes Is patient alert and oriented? Yes Barriers to Discharge No Comment Pt admitted under observation for TIA r/o. Payer: Medicare/ [employer]. Reviewed chart. Pt has been DC by Dr Goodrich today. MRI did not show signs of stroke. Pt instructed to modify lifestyle to include healthy diet, limited alchol use and increased physical activity. Pt indp ambulator, DC home w/ no barriers or SW needs per Dr Goodrich and RN. DIANE Gagnon Transportation Arrangement Family Referrals Initiated None needed Review Status In Process
== END 2018-05-21 14:48 | disposition home or self-care (01) ==
LOC: ED 17:41 → AC 19:04
PROVIDERS: Nurse Practitioner Adult Health; Admitting Provider Internal Medicine; Emergency Provider Emergency Medicine; Family Provider Family Medicine; PCP Family Medicine; Visit Provider Internal Medicine
DX: R29.818 Other symptoms and signs involving the nervous system (principal); I10 Essential (primary) hypertension; Z86.73 Personal history of transient ischemic attack (TIA), and cerebral infarction without residual deficits; I44.1 Atrioventricular block, second degree; I16.1 Hypertensive emergency; R05 Cough; M54.2 Cervicalgia; K43.9 Ventral hernia without obstruction or gangrene
CPT/HCPCS: 36415; 36591; 70450; 70496; 70498; 70553; 80048; 80061; 80320; 82550; 82553; 82962; 84484; 85025; 85610; 85730; 87633; 93005; 93041; 93306; 94762; 96360; 99284; 99285; 99291; G0378; A9579; J1650

== ENCOUNTER → 2018-10-19 07:20 | Outpatient (CLI) | payer MEDICARE, OTHER, SELFPAY ==
[2018-10-19 08:18] LABS: Alanine Aminotransferase 27 IU/L (21-72); Albumin 4.5 g/dL (3.5-5.0); Albumin Globulin Ratio 1.4 (1.0-2.8); Alkaline Phosphatase 140 U/L (38-126); Aspartate Aminotransferase 30 IU/L (17-59); Bilirubin Unconjugated 0.8 mg/dL (0.0-1.1); Cholesterol 141 mg/dL (140-199); Globulin 3.2 g/dL (1.7-4.1); HDL Cholesterol 38 mg/dL (40-60); HEMOLYSIS < 15 (0-50); LDL Cholesterol Calculated 57 mg/dL (<100); Total Protein 7.7 g/dL (6.3-8.2); Triglycerides 230 mg/dL (35-150)
== END ==
PROVIDERS: PCP Student in an Organized Health Care Education/Training Program; Visit Provider Student in an Organized Health Care Education/Training Program
DX: E55.9 Vitamin D deficiency, unspecified (principal); E78.1 Pure hyperglyceridemia; G45.9 Transient cerebral ischemic attack, unspecified; Z79.899 Other long term (current) drug therapy
CPT/HCPCS: 36415; 80061; 80076; 82306

== ENCOUNTER → 2019-04-13 15:46 | Outpatient (CLI) | payer MEDICARE, OTHER, SELFPAY ==
[2019-04-12 11:27] VITALS: BMI 29.6
--- NOTE | 2019-04-13 15:48 | DI.RAD.S_ITS ---
PROCEDURE: XR CERVICAL SPINE 2V OR 3V INDICATIONS: Neck pain; prev imaging suggesting ankylosing spondylitis TECHNIQUE: 4 view(s) of the cervical spine were acquired. COMPARISON: [facility], CT, CT ANGIO HEAD AND NECK, 05/20/2018, 16:46. FINDINGS: Bones: No fractures or dislocations to the T1 level. The lateral masses of C1 appear intact on the odontoid view. No suspicious bony lesions. Note is made of bridging osteophytes from C4 at inferiorly, as was seen during CT scanning 05/20/18 (angiographic study the head and neck at that time). No fracture is seen, and no subluxation is associated. Soft tissues: No prevertebral soft tissue swelling. IMPRESSION: By plain film imaging of the cervical spine bridging osteophytes anteriorly appear present with an appearance considered more likely to represent DISH than definite ankylosing spondylitis. Dictated by: Duncan Tovar M.D. on 04/13/2019 at 16:34 Approved by: Duncan Tovar M.D. on 04/13/2019 at 16:37
--- NOTE | 2019-04-13 15:48 | DI.RAD.S_ITS ---
PROCEDURE: XR LUMBAR SPINE 2-3V INDICATIONS: r/o of low spine/hips, back pain TECHNIQUE: 3 views of the lumbar spine were acquired. COMPARISON: [facility], CT, ABDOMEN/PELVIS WITH CONTRAST, 05/08/2014, 8:57. FINDINGS: Bones: 5 ono-xlm-lmpoces vertebrae are present. There is normal bony alignment. No vertebral body compression fractures. No suspicious bony lesions. Degenerative disc disease is moderately severe to severe, and most pronounced over the lower half of the LS spine. Degenerative facet osteoarthritis is severe from L3 inferiorly, and the likelihood of spinal and foraminal stenosis through these levels is considered high. Soft tissues: Overlying bowel gas pattern is normal. No suspicious soft tissue calcifications. IMPRESSION: The pattern of degenerative changes along the lumbosacral spine and visualized lower thoracic spine and also referenced to prior CT scanning indicates degenerative disc disease and facet osteoarthritis is the likely cause for the abnormalities present rather than ankylosing spondylitis or other immune mediated spondyloarthropathy. Dictated by: Duncan Tovar M.D. on 04/13/2019 at 16:32 Approved by: Duncan Tovar M.D. on 04/13/2019 at 16:34
== END ==
PROVIDERS: PCP Student in an Organized Health Care Education/Training Program; Referring Provider Student in an Organized Health Care Education/Training Program; Visit Provider Student in an Organized Health Care Education/Training Program
DX: M54.2 Cervicalgia (principal); M51.36 Other intervertebral disc degeneration, lumbar region; M47.816 Spondylosis without myelopathy or radiculopathy, lumbar region; M25.78 Osteophyte, vertebrae; M25.559 Pain in unspecified hip
CPT/HCPCS: 72040; 72100

== ENCOUNTER → 2019-12-22 10:39 | Outpatient (CLI) | payer MEDICARE, OTHER, SELFPAY ==
[2019-04-12 11:27] VITALS: BMI 29.6
[2019-12-22 12:11] LABS: BUN Creatinine Ratio 18.8 (6-22); Blood Urea Nitrogen 15 mg/dL (9-20); Calcium 8.9 mg/dL (8.4-10.2); Carbon Dioxide 29 mmol/L (22-32); Chloride 99 mmol/L (98-107); Estimated Glomerular Filt Rate > 60.0 mL/min (>60); Glucose 105 mg/dL (80-110); HEMOLYSIS < 15 (0-50); Sodium 134 mmol/L (137-145)
[2019-12-22 17:11] LABS: Vitamin D 25 Hydroxy (D3) < 12.8 ng/mL (30.0-100.0)
== END ==
PROVIDERS: PCP Student in an Organized Health Care Education/Training Program; Referring Provider Student in an Organized Health Care Education/Training Program; Visit Provider Student in an Organized Health Care Education/Training Program
DX: E55.9 Vitamin D deficiency, unspecified (principal); I10 Essential (primary) hypertension
CPT/HCPCS: 36415; 80048; 82306

== ENCOUNTER → 2020-02-29 07:03 | Outpatient (CLI) | payer MEDICARE, OTHER, SELFPAY ==
[2019-04-12 11:27] VITALS: BMI 29.6
[2020-02-29 07:58] LABS: Alkaline Phosphatase 126 U/L (38-126); BUN Creatinine Ratio 16.2 (6-22); Blood Urea Nitrogen 11 mg/dL (9-20); Estimated Glomerular Filt Rate > 60.0 mL/min (>60); Phosphorous 3.4 mg/dL (2.3-3.7)
[2020-03-01 08:09] LABS: Calcium 9.4 mg/dL (8.6-10.2); Parathyroid Hormone, Intact 42 pg/mL (15-65)
== END ==
PROVIDERS: PCP Student in an Organized Health Care Education/Training Program; Referring Provider Student in an Organized Health Care Education/Training Program; Visit Provider Student in an Organized Health Care Education/Training Program
DX: E55.9 Vitamin D deficiency, unspecified (principal)
CPT/HCPCS: 36415; 82306; 82310; 82565; 83970; 84075; 84100; 84520

== ENCOUNTER → 2021-03-26 15:09 | Outpatient (CLI) | payer MEDICARE, OTHER, SELFPAY ==
[2019-04-12 11:27] VITALS: BMI 29.6
[2021-03-26 16:45] LABS: BUN Creatinine Ratio 20.8 (6-22); Blood Urea Nitrogen 16 mg/dL (9-20); Calcium 9.1 mg/dL (8.4-10.2); Carbon Dioxide 28 mmol/L (22-32); Chloride 100 mmol/L (98-107); Estimated Glomerular Filt Rate > 60.0 mL/min (>60); Glucose 120 mg/dL (80-110); HEMOLYSIS < 15 (0-50); Potassium 4.4 mmol/L (3.4-5.1); Sodium 133 mmol/L (137-145)
[2021-03-26 17:06] LABS: Vitamin D 25 Hydroxy (D3) 32.5 ng/mL (30.0-100.0)
== END ==
PROVIDERS: PCP Student in an Organized Health Care Education/Training Program; Referring Provider Student in an Organized Health Care Education/Training Program; Visit Provider Student in an Organized Health Care Education/Training Program
DX: E55.9 Vitamin D deficiency, unspecified (principal); I10 Essential (primary) hypertension
CPT/HCPCS: 36415; 80048; 82306

== ENCOUNTER → 2021-04-08 13:14 | Outpatient (CLI) | payer MEDICARE, OTHER, SELFPAY ==
[2019-04-12 11:27] VITALS: BMI 29.6
--- NOTE | 2021-04-08 13:16 | DI.RAD.S_ITS ---
PROCEDURE: XR CERVICAL SPINE 2V OR 3V INDICATIONS: cervical spine pain TECHNIQUE: 3 view(s) of the cervical spine were acquired. COMPARISON: [facility], CR, XR CERVICAL SPINE 2V OR 3V, 04/13/2019, 15:47. FINDINGS: Bones: No fractures or dislocations to the C6 level. Flowing anterior osteophytes at C4-C7. Odontoid view is suboptimal. No suspicious bony lesions. Soft tissues: No prevertebral soft tissue swelling. IMPRESSION: 1. DISH. 2. No acute fracture. No osseous lesion. If symptoms and/or clinical suspicion for pathology persist, further assessment with repeat, or advanced imaging (e.g., CT, MRI, or bone scan) may be helpful for further assessment. Dictated by: Amol Ashton M.D. on 04/08/2021 at 13:44 Approved by: Amol Ashton M.D. on 04/08/2021 at 16:55
--- NOTE | 2021-04-08 13:16 | DI.RAD.S_ITS ---
PROCEDURE: XR LUMBAR SPINE 2-3V INDICATIONS: lumbar spine pain TECHNIQUE: 3 views of the lumbar spine were acquired. COMPARISON: [facility], CR, XR LUMBAR SPINE 2-3V, 04/13/2019, 15:47. FINDINGS: Bones: Vertebral body height and alignment is maintained. Multilevel degenerative disc space narrowing and sclerotic facet joints present throughout the exam particularly prominent in the lower lumbar spine. Bone mineralization within normal limits. Soft tissues: Overlying bowel gas pattern is normal. No suspicious soft tissue calcifications. Atherosclerotic calcification in the abdominal aorta noted without evidence of aneurysm. IMPRESSION: 1. Multilevel degenerative disc disease and arthropathy particularly in the lower lumbar spine, stable from the prior Approved by: Thierry Mcclellan M.D. on 04/08/2021 at 14:27
== END ==
PROVIDERS: PCP Student in an Organized Health Care Education/Training Program; Referring Provider Student in an Organized Health Care Education/Training Program; Visit Provider Student in an Organized Health Care Education/Training Program
DX: M48.12 Ankylosing hyperostosis [Forestier], cervical region (principal); M47.816 Spondylosis without myelopathy or radiculopathy, lumbar region; M51.36 Other intervertebral disc degeneration, lumbar region
CPT/HCPCS: 72040; 72100

== ENCOUNTER 2021-10-11 23:46 | Emergency (ER) | payer MEDICARE, OTHER, SELFPAY ==
[2019-04-12 11:27] VITALS: BMI 29.6
[2021-10-11 23:51] VITALS: BP 153/68; PULSE 68; RESP 18; TEMP 36.6; O2SAT 95; BMI 29.2
--- NOTE | 2021-10-11 23:57 | PC.NURSE ---
Pt very irritated with staff when asked multiple questions regarding his eye and his vision. Pt reports he has lens implants.
[2021-10-12] MEDS: OFLOXACIN 0.3% OPHTH 5 ML 1 DROPS EYE-LEFT (00:28)
[2021-10-12] MEDS: PROPARACAINE 0.5% OPHTH SOL 1 DROPS EYE-LEFT (00:28)
[2021-10-12] MEDS: FLUORESCEIN 1 MG STRIP EYE-LEFT (00:28)
--- NOTE | 2021-10-12 05:27 | ED.EYEPROB ---
HPI - Eye Problem General Chief complaint: Eye Problems Stated complaint: Something in Lt. eye Time Seen by Provider: 10/11/21 23:49 Source: patient Mode of arrival: Ambulatory History of Present Illness HPI Narrative: 85-year-old male former smoker with history of hypertension, hyperlipidemia presents with his in the chief complaint of feeling as if something were in his eye. He went to bed feeling fine and woke up feeling as if there was a foreign body in his left eye though he does not remember any specific event. He did not have any issues earlier today, he denies any blurred or double vision, he just states it hurts. He is had no drainage. 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 He does not wear contacts, he denies any visual field cuts, floaters or flashers Related Data Home Medications Medication Instructions Recorded Confirmed PreserVision AREDS 1 cap PO BID 05/20/18 03/26/21 aspirin 81 mg tablet,delayed 81 mg PO DAILY 05/20/18 03/26/21 release Previous Rx's Medication Instructions Recorded Parking Permit... #1 ea 03/26/21 amlodipine 5 mg tablet 5 mg PO DAILY #90 tabs 03/28/21 atorvastatin 20 mg tablet 20 mg PO BEDTIME #90 tabs 03/28/21 lisinopril 20 mg tablet 20 mg PO DAILY #90 tabs 03/28/21 Allergies Allergy/AdvReac Type Severity Reaction Status Date / Time caffeine Allergy Verified 03/26/21 14:30 prednisone Allergy Verified 03/26/21 14:30 Review of Systems Review of Systems Narrative: GENERAL: Denies chills, fatigue, malaise, fever, sweats. HEENT: See HPI RESPIRATORY: Denies dyspnea, cough, wheezing, hemoptysis, sputum. CARDIOVASCULAR: Denies chest pain, palpitations, orthopnea, edema, GASTROINTESTINAL: Denies nausea, vomiting, abdominal pain, diarrhea, constipation, melena. : Denies dysuria, frequency, incontinence, hematuria, urinary retention. MUSCULOSKELETAL: denies weakness, joint pain, or bony pain SKIN: Denies rash, skin lesions, or other NEUROLOGIC: Denies weakness, headache, numbness, change in speech, confusion, seizures, incoordination. PSYCHIATRIC: No concerning psychosocial issues. 12 point review of systems is negative except for those stated above Patient History Medical History Abnormal chest x-ray (~2013) Arrhythmia, atrial Chronic neck pain Hemorrhoids Hypertension Prostate cancer (~2011) TIA (transient ischemic attack) Ventral hernia Surgical History Anesthesia History of cardiac radiofrequency ablation (RFA) (~2011) History of cataract removal with insertion of prosthetic lens (~2012) History of hemorrhoidectomy (~1959) Status post appendectomy (~1965) Status post knee surgery (~1969) Status post radical cystoprostatectomy (~2011) Family History Father Hypertension Prostate ca Mother Zap's chorea Sister Congestive heart failure Social History marital status: household members: spouse lives independently: Yes Smoking Status: Former smoker alcohol intake: current Smoking Status: Former smoker alcohol intake frequency: 0-2 drinks per day Substance Use Type: does not use Exam Narrative Exam Narrative: GENERAL: [85] year old patient appears stated age. Well-developed patient, in mild distress. HEAD: Atraumatic. Normocephalic. EYES: Pupils equal round and reactive. Extraocular motions intact. Minimal injection of left eye, no foreign body noted with visualization under Wood's lamp, upper lid everted. No fluorescein uptake. Symptoms completely resolved with 1 drop of proparacaine. Pressure 15 mmHg. No abnormal finding on bedside point of care ultrasound ENT: Nose without bleeding, purulent drainage. Throat without erythema, tonsillar hypertrophy or exudate. Airway patent. NECK: Trachea midline. Non tender CARDIOVASCULAR: Regular rate and rhythm without murmurs, gallops, or rubs. RESPIRATORY: Clear to auscultation. Breath sounds equal bilaterally. No wheezes, rales, or rhonchi. GASTROINTESTINAL: Abdomen soft, non-tender, nondistended. EXTREMITIES: No edema or joint tenderness. BACK: Nontender without deformity or crepitance. No flank tenderness. NEURO: AOx3. SKIN: No rash or erythema of visible areas Initial Vital Signs Initial Vital Signs: Vital Signs Temperature 98 F 10/11/21 23:51 Pulse Rate 68 10/11/21 23:51 Respiratory Rate 18 08/05/22 23:51 Blood Pressure 153/68 H 10/11/21 23:51 Pulse Oximetry 95 10/11/21 23:51 Oxygen Delivery Method 10/11/21 23:51 Course Orders Ordered: Discontinued Medications Fluorescein Sodium (Fluorescein 1 Mg Strip) 1 mg EYE-LEFT NOW ONE Stop: 10/11/21 23:50 Last Admin: 10/12/21 00:28 Dose: 1 mg Documented By: KATARZYNA Ofloxacin (Ofloxacin 0.3% Ophth 5 Ml) 1 drops EYE-LEFT NOW ONE Stop: 10/12/21 00:15 Last Admin: 10/12/21 00:28 Dose: 1 drop Documented By: KATARZYNA Proparacaine HCl (Proparacaine 0.5% Ophth Clarisse) 1 drops EYE-LEFT NOW ONE Stop: 10/11/21 23:50 Last Admin: 10/12/21 00:28 Dose: 1 drop Documented By: KATARZYNA Vital Signs Vital signs: Vital Signs - 8 hr 10/11/21 23:51 Temperature 98 F Pulse Rate 68 Respiratory Rate 18 Blood Pressure 153/68 H Pulse Oximetry 95 Oxygen Delivery Method Room Air Discharge Plan Departure Patient Disposition: Home Clinical Impression: Acute eye pain Instructions: DI for Eye Pain Activity Restrictions/Additional Instructions: *You have been diagnosed with [ acute left eye pain. As we discussed your history and physical exam are very reassuring. I did not notice any obvious infection, foreign body, abrasion or other obvious finding on exam. The pressure in your eye was normal, which suggest against glaucoma.] *What to do: *Please use the antibiotic drop by instilling 1-2 drops in your left eye every 4 hours while awake until symptoms improve * also, you may use the diluted proparacaine for pain. Please use 1-2 drops in your left eye every 60 minutes for discomfort as needed [ ] New medication prescriptions sent to your pharmacy: [ ] [ ] New medication written as a paper prescription [ ] No new medications given *Please follow up with your primary care provider in 2-3 days, call for an appointment. Let them know you were seen in the Emergency Department and that we ask that you be seen in follow up. We will electronically transmit a record of today's note if your PCP is in our system *If you do not have a primary care provider please contact the [facility] Resource line at [phone]. They will ask some questions about your medical history and help get you set up with a doctor in the community. *Return to Emergency Department if you should have any new, worsening or concerning symptoms, such as [fever greater than 101 F, shaking chills, worsening pain, persistent vomiting or other bothersome symptoms] Prescriptions: No Action (DME) Parking Permit... See Rx Instructions .ROUTE .MEDSUPPLY Qty: 1 0RF Rx Instructions: As directed amlodipine 5 mg tablet 5 mg PO DAILY Qty: 90 3RF atorvastatin 20 mg tablet 20 mg PO BEDTIME Qty: 90 3RF lisinopril 20 mg tablet 20 mg PO DAILY Qty: 90 3RF aspirin 81 mg Tablet,Delayed Release (Dr/Ec) 81 mg PO DAILY PreserVision AREDS 1 cap PO BID Referrals: Cayden Strong MD [Primary Care Provider] - Visit Report Forms: Patient Portal/API
== END 2021-10-12 00:33 | disposition home or self-care (01) ==
PROVIDERS: Emergency Provider Emergency Medicine; PCP Student in an Organized Health Care Education/Training Program
DX: H57.12 Ocular pain, left eye (principal)
CPT/HCPCS: 99282

== ENCOUNTER → 2022-03-27 08:25 | Outpatient (CLI) | payer MEDICARE, OTHER, SELFPAY ==
[2019-04-12 11:27] VITALS: BMI 29.6
[2022-03-27 10:23] LABS: Alanine Aminotransferase 25 IU/L (<50); Alkaline Phosphatase 108 U/L (38-126); Aspartate Aminotransferase 30 IU/L (17-59); BUN Creatinine Ratio 17.4 (6-22); Bilirubin Total 0.7 mg/dL (0.2-1.3); Blood Urea Nitrogen 12 mg/dL (9-20); Calcium 8.9 mg/dL (8.4-10.2); Carbon Dioxide 24 mmol/L (22-32); Chloride 97 mmol/L (98-107); Cholesterol 132 mg/dL (140-199); Estimated Glomerular Filt Rate > 60 mL/min (>60); Glucose 101 mg/dL (80-110); HDL Cholesterol 38 mg/dL (40-60); HEMOLYSIS < 15 (0-50); LDL Cholesterol Calculated 69 mg/dL (<100); Phosphorous 3.3 mg/dL (2.3-3.7); Potassium 4.8 mmol/L (3.4-5.1); Sodium 132 mmol/L (137-145); Total Protein 7.4 g/dL (6.3-8.2); Triglycerides 126 mg/dL (35-150)
[2022-03-27 10:38] LABS: Vitamin D 25 Hydroxy (D3) 57.5 ng/mL (30.0-100.0)
[2022-03-28 17:04] LABS: Albumin 4.2 g/dL (3.5-5.0); Albumin Globulin Ratio 1.3 (1.0-2.8); Globulin 3.2 g/dL (1.7-4.1)
== END ==
PROVIDERS: PCP Student in an Organized Health Care Education/Training Program; Referring Provider Student in an Organized Health Care Education/Training Program; Visit Provider Student in an Organized Health Care Education/Training Program
DX: E78.1 Pure hyperglyceridemia (principal); E55.9 Vitamin D deficiency, unspecified; I10 Essential (primary) hypertension; M48.10 Ankylosing hyperostosis [Forestier], site unspecified
CPT/HCPCS: 36415; 80053; 80061; 82306; 84100

== ENCOUNTER 2023-06-07 09:01 | Emergency (ER) | payer MEDICARE, OTHER, SELFPAY ==
[2023-02-19 08:29] VITALS: BMI 29.6
[2023-06-07] VITALS (7 sets, daily range): BP systolic 148–157; BP diastolic 65–72; PULSE 67–98; RESP 18–24; TEMP 36.8–37.7; O2SAT 96–98; BMI 30.4
--- NOTE | 2023-06-07 09:24 | ED_ITS ---
HPI - URI/Sore Throat General Chief Complaint: Upper Respiratory Symptoms Stated Complaint: Covid+/ sore throat Time Seen by Provider: 06/07/23 09:16 Source: patient and family Mode of arrival: Wheelchair History of Present Illness HPI Narrative: In 7-year-old male history of hypertension hyperlipidemia presenting today with sore throat cough. Tested positive for COVID at home yesterday. thinks that she was 1st 1 with symptoms she did well. He overall does not feel well. They have had 2 COVID vaccines but have not gotten any sense. He denies any shortness of breath or chest pain. Sore throat and generally feeling unwell. Related Data Home Medications Medication Instructions Recorded Confirmed PreserVision AREDS 1 cap PO BID 05/20/18 01/15/23 aspirin 81 mg tablet,delayed 81 mg PO DAILY 05/20/18 01/15/23 release Previous Rx's Medication Instructions Recorded DISABLED PARKING PERMIT #1 ea 01/15/23 amlodipine 5 mg tablet See Rx Instructions .Route 03/11/23 .COMPLEX #90 tabs atorvastatin 20 mg tablet See Rx Instructions .Route 03/11/23 .COMPLEX #90 tabs lisinopril 20 mg tablet See Rx Instructions .Route 03/11/23 .COMPLEX #90 tabs Allergies Allergy/AdvReac Type Severity Reaction Status Date / Time caffeine Allergy Verified 01/15/23 09:58 prednisone Allergy Verified 01/15/23 09:58 Patient History Medical History Abnormal chest x-ray (~2013) Arrhythmia, atrial Chronic neck pain Hemorrhoids Hypertension Prostate cancer (~2011) TIA (transient ischemic attack) Ventral hernia Surgical History Anesthesia History of cardiac radiofrequency ablation (RFA) (~2011) History of cataract removal with insertion of prosthetic lens (~2012) History of hemorrhoidectomy (~1959) Status post appendectomy (~1965) Status post knee surgery (~1969) Status post radical cystoprostatectomy (~2011) Family History Father Hypertension Prostate ca Mother Chrisney's chorea Sister Congestive heart failure Social History marital status: household members: spouse lives independently: Yes Smoking Status: Former smoker alcohol intake: current Smoking Status: Former smoker alcohol intake frequency: 0-2 drinks per day Substance Use Type: does not use Exam Initial Vital Signs Initial Vital Signs: Vital Signs Pulse Rate 81 06/07/23 09:08 Blood Pressure 157/72 H 06/07/23 09:08 Pulse Oximetry 97 06/07/23 09:08 GENERAL: [Well-appearing, well-nourished] and in [no acute] distress. HEENT: Head atraumatic,EOMI, pupils reactive, face symmetric, [moist] mucous membranes CARDIOVASCULAR: Regular rate and rhythm without murmurs, rubs or gallops. RESPIRATORY: Breath sounds equal bilaterally, no wheezes rales or rhonchi. ABDOMEN: Soft, nontender. Normoactive bowel sounds all 4 quadrants. No guarding or rebound. EXTREMITIES: Normal range of motion, no clubbing or edema. Neurovascularly intact NEUROLOGICAL: Alert and oriented x4.Normal gait and speech. SKIN: Warm, dry, no laceration, no petechiae, no rashes or lesions. Course Orders Ordered: ED Orders 06/07/23 09:36 Chest [XR chest 1V] Stat 06/07/23 09:48 CBC Auto Diff [Complete Blood Count AUTO DIFF] Stat CMP [Comprehensive Metabolic Panel] Stat Discontinued Medications Acetaminophen (Ofirmev) 1,000 mg in 100 mls @ 400 mls/hr IV NOW ONE Stop: 06/07/23 09:50 Last Infusion: 06/07/23 10:11 Dose: Infused Documented By: Admin: 06/07/23 09:48 Dose: 400 mls/hr Documented By: TOÑO Sodium Chloride (Normal Saline 0.9%) 1,000 mls @ 1,000 mls/hr IV BOLUS ONE Stop: 06/07/23 10:35 Last Infusion: 06/07/23 10:53 Dose: Infused Documented By: Admin: 06/07/23 09:48 Dose: 1,000 mls/hr Documented By: TOÑO Vital Signs Vital signs: Vital Signs - 8 hr 06/07/23 09:08 06/07/23 09:08 06/07/23 09:13 Temperature 98.2 F Pulse Rate 81 98 H Respiratory Rate 18 Blood Pressure 157/72 H 157/72 H Pulse Oximetry 97 98 Oxygen Delivery Method Room Air 06/07/23 09:30 06/07/23 09:31 06/07/23 09:31 Temperature Pulse Rate 69 69 Respiratory Rate 22 20 Blood Pressure 150/65 H Pulse Oximetry 96 96 Oxygen Delivery Method 06/07/23 10:00 06/07/23 10:01 06/07/23 10:01 Temperature Pulse Rate 69 79 Respiratory Rate 19 24 Blood Pressure 148/65 H Pulse Oximetry 96 96 Oxygen Delivery Method 06/07/23 10:30 06/07/23 10:30 Temperature 99.9 F H Pulse Rate 67 Respiratory Rate 23 Blood Pressure 148/67 H Pulse Oximetry 96 Oxygen Delivery Method Room Air MDM - URI/Sore Throat Lab Data 06/07/23 09:48 06/07/23 09:48 Labs: Lab Results 06/07/23 Range/Units 09:48 WBC 9.7 (4.5-11.0) X10^3/uL RBC 4.78 (4.5-5.9) X10^6/uL Hgb 10.4 L (13.5-17.5) g/dL Hct 33.4 L (41-53) % MCV 70.0 L (80-100) fL MCH 21.6 L (26-34) PG MCHC 30.9 (30-36) % RDW 17.2 H (11.6-14.8) % Plt Count 250 (150-400) X10^3/uL Neut % (Auto) 74.0 (50-75) % Lymph % (Auto) 16.8 L (25-40) % Mcdonald % (Auto) 8.5 (3-14) % Eos % (Auto) 0.0 L (2-4) % Baso % (Auto) 0.7 (0-2) % Neut # (Auto) 7200 H (0681-3189) /uL Lymph # (Auto) 1600 (6204-8583) /uL Mcdonald # (Auto) 800 (0-900) /uL Eos # (Auto) 0 (0-450) /uL Baso # (Auto) 100 (0-100) /uL Sodium 130 L (137-145) mmol/L Potassium 4.3 (3.4-5.1) mmol/L Chloride 100 (98-107) mmol/L Carbon Dioxide 22 (22-32) mmol/L BUN 13 (9-20) mg/dL Creatinine 0.73 (0.66-1.25) mg/dL Estimated GFR > 60 (>60) mL/min BUN/Creatinine Ratio 17.8 (6-22) Glucose 118 H (80-110) mg/dL Calcium 8.6 (8.4-10.2) mg/dL Total Bilirubin 0.6 (0.2-1.3) mg/dL AST 30 (17-59) IU/L ALT 22 (<50) IU/L Alkaline Phosphatase 117 (38-126) U/L Total Protein 7.6 (6.3-8.2) g/dL Albumin 4.1 (3.5-5.0) g/dL Globulin 3.5 (1.7-4.1) g/dL Albumin/Globulin Ratio 1.2 (1.0-2.8) Imaging Data Chest x-ray: Radiologist's Impression: PROCEDURE: XR CHEST 1V INDICATIONS: covid TECHNIQUE: One view of the chest was acquired. COMPARISON: [facility], , CHEST 2 VIEW, 05/26/2011, 17:13. FINDINGS: Surgical changes and devices: None. Lungs and pleura: An incomplete inspiratory result is noted, causing a crowded appearance to the lung markings. No focal infiltrates are seen. No pneumothorax or significant pleural effusions are seen. Mediastinum: Mediastinal contours appear normal. Heart size is normal. Atherosclerotic calcification of the aortic arch is noted. Bones and chest wall: No suspicious bony lesions. Age-appropriate bony degenerative changes are seen. Overlying soft tissues appear unremarkable. IMPRESSION: Low lung volumes, without willi focal infiltrates. Please consider short-term follow-up. Dictated by: Ryan Hutson M.D. on 06/07/2023 at 9:02 MDM Narrative Medical decision making narrative: Patient 87-year-old male history of hypertension hyperlipidemia presenting today with known COVID. Had a home positive test yesterday just feeling generally weak today. Vitals are stable oxygen is within normal limits. Blood work has been reviewed: Mild anemia hemoglobin 10.4 hematocrit 33.4 previously in 2019 hemoglobin 14.8 hematocrit 43.6. Sodium chronically low today is 130 previously 132 creatinine 0.73, glucose 118 Chest x-ray has been reviewed: No pneumonia Patient received IV fluids and IV Tylenol overall feeling little bit better. No need for admission. Supportive care only Discharge Plan Departure Patient Disposition: Home Clinical Impression: COVID-19 Instructions: COVID-19 Activity Restrictions/Additional Instructions: *You have been diagnosed with COVID-19 *What to do: Expect to feel poorly for the next week or so. Increase food as tolerated be sure to stay hydrated. *Continue to take medications as directed Tylenol ibuprofen as needed *Follow up with your primary care provider in 2-3 days or call [phone] *Return to ER if you should have increasing confusion shortness of breath decreased fluid intake [or] any new, worsening or concerning symptoms Prescriptions: No Action atorvastatin 20 mg tablet See Rx Instructions .ROUTE .COMPLEX Qty: 90 0RF Dose Instruction: TAKE 1 TABLET AT BEDTIME Rx Instructions: TAKE 1 TABLET AT BEDTIME/ PT WILL NEED TO BE SEEN BEFORE NEXT RENEWAL 09/24/22 lisinopril 20 mg tablet See Rx Instructions .ROUTE .COMPLEX Qty: 90 0RF Dose Instruction: TAKE 1 TABLET EVERY DAY Rx Instructions: TAKE 1 TABLET EVERY DAY/ PT WILL NEED TO BE SEEN BEFORE NEXT RENEWAL 09/24/22 amlodipine 5 mg tablet See Rx Instructions .ROUTE .COMPLEX Qty: 90 0RF Dose Instruction: TAKE 1 TABLET EVERY DAY Rx Instructions: TAKE 1 TABLET EVERY DAY/ PT WILL NEED TO BE SEEN BEFORE NEXT RENEWAL 09/24/22 (DME) DISABLED PARKING PERMIT See Rx Instructions .ROUTE .MEDSUPPLY Qty: 1 0RF Rx Instructions: I FIND THIS PATIENT TO BE MEDICALLY DISABLED AND QUALIFIED FOR DISABLE PARKING INDICATED, AND SIGNED ON THE ACCOMPANYING [employer] APPLICATION FOR INDIVIDUALS aspirin 81 mg Tablet,Delayed Release (Dr/Ec) 81 mg PO DAILY PreserVision AREDS 1 cap PO BID Referrals: Jenny Cano DO [Primary Care Provider] - Stand Alone Forms: Patient Portal/API
--- NOTE | 2023-06-07 09:36 | DI.RAD.S_ITS ---
PROCEDURE: XR CHEST 1V INDICATIONS: covid TECHNIQUE: One view of the chest was acquired. COMPARISON: [facility], , CHEST 2 VIEW, 05/26/2011, 17:13. FINDINGS: Surgical changes and devices: None. Lungs and pleura: An incomplete inspiratory result is noted, causing a crowded appearance to the lung markings. No focal infiltrates are seen. No pneumothorax or significant pleural effusions are seen. Mediastinum: Mediastinal contours appear normal. Heart size is normal. Atherosclerotic calcification of the aortic arch is noted. Bones and chest wall: No suspicious bony lesions. Age-appropriate bony degenerative changes are seen. Overlying soft tissues appear unremarkable. IMPRESSION: Low lung volumes, without willi focal infiltrates. Please consider short-term follow-up. Dictated by: Ryan Hutson M.D. on 06/07/2023 at 9:02 Approved by: Ryan Hutson M.D. on 06/07/2023 at 9:04
[2023-06-07] MEDS: SODIUM CHLORIDE 0.9% 1,000 ML 1000 ML IV (09:48)
[2023-06-07] MEDS: ACETAMINOPHEN IV 1,000 MG/100 ML VIAL 400 MG IV (09:48)
[2023-06-07 10:01] LABS: Add Manual Diff / Slide Review NO; Basophils Absolute Auto 100 /uL (0-100); Basophils Percent Auto 0.7 % (0-2); Eosinophils Absolute Auto 0 /uL (0-450); Hematocrit 33.4 % (41-53); Hemoglobin 10.4 g/dL (13.5-17.5); Lymphocytes Absolute Auto 1600 /uL (1100-4500); Lymphocytes Percent Auto 16.8 % (25-40); Mean Corpuscular HGB Conc 30.9 % (30-36); Mean Corpuscular Hemoglobin 21.6 PG (26-34); Monocytes Absolute Auto 800 /uL (0-900); Monocytes Percent Auto 8.5 % (3-14); Neutrophils Absolute Auto 7200 /uL (1500-7000); Platelet Count 250 X10^3/uL (150-400); Red Blood Cell Count 4.78 X10^6/uL (4.5-5.9); Red Cell Distribution Width 17.2 % (11.6-14.8); White Blood Cell Count 9.7 X10^3/uL (4.5-11.0)
[2023-06-07 10:11] LABS: Alanine Aminotransferase 22 IU/L (<50); Albumin 4.1 g/dL (3.5-5.0); Albumin Globulin Ratio 1.2 (1.0-2.8); Alkaline Phosphatase 117 U/L (38-126); Aspartate Aminotransferase 30 IU/L (17-59); BUN Creatinine Ratio 17.8 (6-22); Bilirubin Total 0.6 mg/dL (0.2-1.3); Blood Urea Nitrogen 13 mg/dL (9-20); Calcium 8.6 mg/dL (8.4-10.2); Carbon Dioxide 22 mmol/L (22-32); Chloride 100 mmol/L (98-107); Estimated Glomerular Filt Rate > 60 mL/min (>60); Globulin 3.5 g/dL (1.7-4.1); Glucose 118 mg/dL (80-110); HEMOLYSIS < 15 (0-50); Potassium 4.3 mmol/L (3.4-5.1); Sodium 130 mmol/L (137-145); Total Protein 7.6 g/dL (6.3-8.2)
== END 2023-06-07 10:56 | disposition home or self-care (01) ==
PROVIDERS: Emergency Provider Emergency Medicine; PCP Family Medicine
DX: U07.1 COVID-19 (principal)
CPT/HCPCS: 36415; 71045; 80053; 85025; 96365; 99284; J0136

== ENCOUNTER 2023-07-19 11:09 | Emergency (ER) | payer MEDICARE, OTHER, SELFPAY ==
[2023-02-19 08:29] VITALS: BMI 29.6
[2023-07-19 11:14] VITALS: BP 149/69; PULSE 69; O2SAT 98
--- NOTE | 2023-07-19 11:14 | DI.CT.S_ITS ---
PROCEDURE: CT HEAD/BRAIN WO CON INDICATIONS: Fall, not on thinners TECHNIQUE: Noncontrast 4.5 mm thick angled axial sections acquired from the foramen magnum to the vertex, with coronal and sagittal reformats. For radiation dose reduction, the following was used: automated exposure control, adjustment of mA and/or kV according to patient size. COMPARISON: [facility], CT, CT HEAD/BRAIN WO CON, 05/20/2018, 16:42. FINDINGS: Image quality: Diagnostic. CSF spaces: Basal cisterns are patent. No extra-axial fluid collections. Ventricles are normal in size and shape. Brain: No midline shift. No intracranial masses or hemorrhage. Perdomo-white matter interface is normal. Moderate cerebral and cerebellar volume loss with multifocal white matter chronic ischemic change noted. Atherosclerotic calcification noted associated with cavernous segments of both internal carotid arteries. 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 Sinuses: Visualized sinuses and mastoids are clear. IMPRESSION: Atrophy and chronic ischemic change without intracranial hemorrhage or mass effect Approved by: Thierry Mcclellan M.D. on 07/19/2023 at 11:36
[2023-07-19 11:16] VITALS: BP 149/69; PULSE 68; RESP 20; TEMP 37.1; O2SAT 98
--- NOTE | 2023-07-19 11:21 | ED.FALL ---
HPI - Fall General Chief Complaint: Fall Stated Complaint: Fall on gravel with head lac Time Seen by Provider: 07/19/23 11:14 Source: patient and EMS Mode of arrival: EMS History of Present Illness HPI Narrative: 87-year-old male. Not on blood thinners who stated that he tripped and fell and landed on gravel. He sustained a cut to his forehead which is bandaged by EMS prior to arrival. He did not lose consciousness. Is having some neck pain, left shoulder pain in right hand pain. No chest pain, palpitations, shortness of breath, abdominal pain or nausea or vomiting. Related Data Home Medications Medication Instructions Recorded Confirmed PreserVision AREDS 1 cap PO BID 05/20/18 01/15/23 aspirin 81 mg tablet,delayed 81 mg PO DAILY 05/20/18 01/15/23 release Previous Rx's Medication Instructions Recorded DISABLED PARKING PERMIT #1 ea 01/15/23 amlodipine 5 mg tablet See Rx Instructions .Route 03/11/23 .COMPLEX #90 tabs atorvastatin 20 mg tablet See Rx Instructions .Route 06/15/23 .COMPLEX #90 tabs lisinopril 20 mg tablet See Rx Instructions .Route 06/15/23 .COMPLEX #90 tabs Allergies Allergy/AdvReac Type Severity Reaction Status Date / Time caffeine Allergy Verified 01/15/23 09:58 prednisone Allergy Verified 01/15/23 09:58 Review of Systems Review of Systems ROS Unobtainable: All systems reviewed & are unremarkable except as noted in HPI and below Patient History Medical History Prostate cancer (~2011) Abnormal chest x-ray (~2013) Ventral hernia Chronic neck pain Hemorrhoids Arrhythmia, atrial Hypertension TIA (transient ischemic attack) Surgical History Anesthesia History of cardiac radiofrequency ablation (RFA) (~2011) History of cataract removal with insertion of prosthetic lens (~2012) History of hemorrhoidectomy (~1959) Status post appendectomy (~1965) Status post knee surgery (~1969) Status post radical cystoprostatectomy (~2011) Family History Father Hypertension Prostate ca Mother [place]'s chorea Sister Congestive heart failure Social History (Reviewed 07/19/23 @ 11:24 by LUPE Zhang marital status: household members: spouse lives independently: Yes Smoking Status: Never smoker alcohol intake: current Smoking Status: Never smoker alcohol intake frequency: 0-2 drinks per day Substance Use Type: does not use Exam Initial Vital Signs Initial Vital Signs: Vital Signs Temperature 98.7 F 07/19/23 11:16 Pulse Rate 68 07/19/23 11:16 Respiratory Rate 20 07/19/23 11:16 Blood Pressure 149/69 H 07/19/23 11:16 Pulse Oximetry 98 07/19/23 11:16 Oxygen Delivery Method Room Air 07/19/23 11:16 Chest Chest: No crepitus and No tenderness Resp Effort & Inspection: normal respiratory effort Auscultation: clear to auscultation bilaterally Cardio Rate: regular rate Rhythm: regular rhythm Skin Other: Superficial abrasions to right hand Neuro General: patient alert, patient awake and patient oriented x3 Speech: speech normal Extrem Other: No gross deformities, tenderness to palpation ulnar aspect of right hand. Unable to move the shoulder secondary to pain. Left elbow left wrist and bilateral lower extremities unremarkable. Procedures Laceration Repair Laceration 1: Site: face Size (cm): 4 Description: stellate Depth: simple, single layer Local Anesthetic: lidocaine 1% and with epi Amount of anesthesia used (mL): 6 Pre-repair: wound explored, irrigated extensively and deep structures intact Skin layer closed with: nylon Skin layer suture size: 5-0 Number of sutures: 7 Technique: simple, interrupted Scores Portuguese CT Head Rule Age <16 years old: No Patient on blood thinners: No Seizure after injury: No Exclusion: Patient NOT Excluded, Proceed to next steps GCS < 15 at 2 hr post trauma: No Suspected open or depressed skull fracture: No Any sign of basilar skull fracture (hemotympanum, raccoon eyes, Lynch's sign, CSF fransisco-/rhinorrhea): No Two or more episodes of vomiting: No Age greater or equal to 65 years: Yes Retrograde amnesia to the event greater or equal to 30 min: No Dangerous Mechanism (pedestrian vs. mv, occupant ejected from mv, fall from >3 ft or > 5 stairs): No Recommendation: Consider CT. The [place] Head CT Rule cannot rule out need for Imaging. GCS Sherman coma scale eye opening: Spontaneous Gabrielle coma scale verbal response: Orientated Sherman coma scale motor response: Obey commands Gabrielle coma scale total score: 15 Nexus Score for C-Spine Focal Neurologic deficit present: No Midline spinal tenderness present: Yes Altered level of conciousness present: No Intoxication present: No Distracting Injury Present: No Nexus Criteria for C-spine: 1 Course Orders Ordered: ED Orders 07/19/23 11:14 CT head/brain wo con Stat 07/19/23 11:20 XR hand RT min 3V Stat XR shoulder LT min 2V Stat 07/19/23 11:21 CT cervical spine wo con Stat Discontinued Medications Hydrocodone Bitart/Acetaminophen (Hydrocodone/Acet 5/325 Tablet) 1 tab PO NOW ONE Stop: 07/19/23 12:10 Last Admin: 07/19/23 12:20 Dose: 1 tab Documented By: GUCCI Bacitracin (Bacitracin Oint 0.9 Gm Pckt) 1 applic TOP NOW ONE Stop: 07/19/23 13:01 Vital Signs Vital signs: Vital Signs - 8 hr 07/19/23 11:16 Temperature 98.7 F Pulse Rate 68 Respiratory Rate 20 Blood Pressure 149/69 H Pulse Oximetry 98 Oxygen Delivery Method Room Air MDM - Fall Imaging Data Extremity x-ray #1: Radiologist's Impression: PROCEDURE: XR SHOULDER LT MIN 2V INDICATIONS: L shoulder pain after fall TECHNIQUE: 3 views of the shoulder were acquired. COMPARISON: None. FINDINGS: Bones: No fractures or dislocations. No suspicious bony lesions. Visualized ribs appear intact. Glenohumeral and AC joint arthropathy Soft tissues: No suspicious soft tissue calcifications. IMPRESSION: Degenerative osteoarthritis fracture or dislocation Extremity x-ray #2: Radiologist's Impression: PROCEDURE: XR HAND RT MIN 3V INDICATIONS: R hand pain after fall TECHNIQUE: 3 views of the hand(s) acquired. COMPARISON: None. FINDINGS: Bones: No fractures or dislocations. Carpal bones are normally aligned. No suspicious bony lesions. Old healed 5th fracture. Distal interphalangeal joint arthritic changes Soft tissues: No suspicious soft tissue calcifications. IMPRESSION: No acute fracture or foreign body. Old healed 5th metacarpal fracture deformity CT scan - head: Radiologist's Impression: PROCEDURE: CT HEAD/BRAIN WO CON INDICATIONS: Fall, not on thinners TECHNIQUE: Noncontrast 4.5 mm thick angled axial sections acquired from the foramen magnum to the vertex, with coronal and sagittal reformats. For radiation dose reduction, the following was used: automated exposure control, adjustment of mA and/or kV according to patient size. COMPARISON: [facility], CT, CT HEAD/BRAIN WO CON, 05/20/2018, 16:42. FINDINGS: Image quality: Diagnostic. CSF spaces: Basal cisterns are patent. No extra-axial fluid collections. Ventricles are normal in size and shape. Brain: No midline shift. No intracranial masses or hemorrhage. Perdomo-white matter interface is normal. Moderate cerebral and cerebellar volume loss with multifocal white matter chronic ischemic change noted. Atherosclerotic calcification noted associated with cavernous segments of both internal carotid arteries. 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 Sinuses: Visualized sinuses and mastoids are clear. IMPRESSION: Atrophy and chronic ischemic change without intracranial hemorrhage or mass effect CT - cervical spine: Radiologist's Impression: ROCEDURE: CT CERVICAL SPINE WO CON INDICATIONS: neck pain after fall TECHNIQUE: Noncontrast 3 mm thick sections acquired from the skull base to the T4 level. Sagittal and coronal reformats were then constructed. For radiation dose reduction, the following was used: automated exposure control, adjustment of mA and/or kV according to patient size. COMPARISON: None. FINDINGS: Image quality: Excellent. Bones: No fractures or dislocations. Visualized superior ribs are intact. Flowing fused anterior osteophytes extend from C4 through T1 with uncovertebral ankylosis at C5-6 and facet ankylosis at C7-T1. Mild multilevel central stenosis present. Soft tissues: Prevertebral soft tissues are normal in thickness. No paravertebral hematomas. No apical pneumothoraces. IMPRESSION: No evidence fracture or traumatic malalignment. 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 The stitches do need to be removed in 7-10 days. You can go to the walk-in clinic or your primary doctor for this. You can put topical antibiotic ointment over the area. Return to the emergency department for new or worsening symptoms. Prescriptions: No Action amlodipine 5 mg tablet See Rx Instructions .ROUTE .COMPLEX Qty: 90 0RF Dose Instruction: TAKE 1 TABLET EVERY DAY Rx Instructions: TAKE 1 TABLET EVERY DAY/ PT WILL NEED TO BE SEEN BEFORE NEXT RENEWAL 09/24/22 atorvastatin 20 mg tablet See Rx Instructions .ROUTE .COMPLEX Qty: 90 2RF Dose Instruction: TAKE 1 TABLET AT BEDTIME Rx Instructions: take one tablet daily lisinopril 20 mg tablet See Rx Instructions .ROUTE .COMPLEX Qty: 90 2RF Dose Instruction: TAKE 1 TABLET EVERY DAY Rx Instructions: TAKE 1 TABLET EVERY DAY (DME) DISABLED PARKING PERMIT See Rx Instructions .ROUTE .MEDSUPPLY Qty: 1 0RF Rx Instructions: I FIND THIS PATIENT TO BE MEDICALLY DISABLED AND QUALIFIED FOR DISABLE PARKING INDICATED, AND SIGNED ON THE ACCOMPANYING [employer] APPLICATION FOR INDIVIDUALS aspirin 81 mg Tablet,Delayed Release (Dr/Ec) 81 mg PO DAILY PreserVision AREDS 1 cap PO BID Referrals: Jenny Cano DO [Primary Care Provider] - Stand Alone Forms: Patient Portal/API
[2023-07-19 12:00] VITALS: PULSE 70; RESP 21; O2SAT 98
[2023-07-19] MEDS: HYDROCODONE/ACET 5/325 TABLET 1 TAB PO (12:20)
[2023-07-19 12:30] VITALS: PULSE 66; RESP 21; O2SAT 98
[2023-07-19 13:00] VITALS: PULSE 65; RESP 25; O2SAT 97
[2023-07-19] MEDS: BACITRACIN OINT 0.9 GM PCKT 1 APPLIC TOP (13:20)
== END 2023-07-19 13:30 | disposition home or self-care (01) ==
PROVIDERS: Emergency Provider Emergency Medicine; PCP Family Medicine
DX: S01.81XA Laceration without foreign body of other part of head, initial encounter (principal); M25.512 Pain in left shoulder; M54.2 Cervicalgia; M79.641 Pain in right hand; W01.0XXA Fall on same level from slipping, tripping and stumbling without subsequent striking against object, initial encounter
CPT/HCPCS: 12013; 70450; 72125; 73030; 73130; 99284

== ENCOUNTER → 2023-10-19 13:59 | Outpatient (CLI) | payer MEDICARE, OTHER, SELFPAY ==
[2023-02-19 08:29] VITALS: BMI 29.6
--- NOTE | 2023-10-19 14:00 | DI.MRI.S_ITS ---
PROCEDURE: MR HAND RT WO CON INDICATIONS: persistent hand pain, decrease ROM, prior 5th metacarp fx TECHNIQUE: Noncontrast coronal T1 spin echo and T2 fast spin echo with fat saturation, axial proton density fast spin echo and T2 fast spin echo with fat saturation, sagittal T1 spin echo and STIR through the hand and fingers. COMPARISON: [facility], CR, XR HAND RT MIN 3V, 07/19/2023, 11:27. FINDINGS: Image quality: Excellent. Bones: There is minimally displaced avulsion fracture of the radial base of the 5th proximal phalanx, with mild marrow edema (series 7, image 12). Chronic deformity of the 5th metacarpal without marrow edema, representing healed fracture. Mild subchondral cystic changes at the 5th metacarpal head, favoring degenerative. Multifocal mild degenerative changes of the right hand. Interphalangeal joint(s): The accessory and proper collateral ligaments appear intact. The volar plate demonstrates normal morphology. The extensor central slips appear intact on sagittal images. Metacarpophalangeal joint(s): The accessory and proper collateral ligaments appear intact, as well as the volar plate and adjacent deep transverse metacarpal ligaments. The sagittal bands of the extensor martel appear normal. Extensor apparatus: Mild ulnar subluxation of the extensor carpi ulnaris within the ulnar groove. Flexor apparatus: The flexor digitorum superficialis and profundus tendons both appear intact. All annular and cruciform pulleys appear intact, without adjacent soft tissue edema. Soft tissues: Visualized muscles demonstrate normal bulk and internal signal. No intramuscular masses identified. No ganglion cysts. IMPRESSION: 1. Avulsion fracture of the radial base of the 5th proximal phalanx with mild marrow edema, acute. 2. Healed fracture of the 5th metacarpal. 3. Mild ulnar subluxation of the extensor carpi ulnaris within the ulnar groove. Dictated by: Francia Sauer M.D. on 10/20/2023 at 12:41 Approved by: Francia Sauer M.D. on 10/20/2023 at 12:47
== END ==
LOC: MRI 14:00
PROVIDERS: PCP Family Medicine; Referring Provider Family Medicine; Visit Provider Family Medicine
DX: S62.666A Nondisplaced fracture of distal phalanx of right little finger, initial encounter for closed fracture (principal); S62.306S Unspecified fracture of fifth metacarpal bone, right hand, sequela; S63.071A Subluxation of distal end of right ulna, initial encounter; M79.641 Pain in right hand; M25.60 Stiffness of unspecified joint, not elsewhere classified
CPT/HCPCS: 73218

== ENCOUNTER → 2024-04-20 07:40 | Outpatient (CLI) | payer OTHER, SELFPAY ==
[2023-02-19 08:29] VITALS: BMI 29.6
[2024-04-20 08:05] LABS: Add Manual Diff / Slide Review NO; Basophils Absolute Auto 100 /uL (0-100); Basophils Percent Auto 0.8 % (0-2); Eosinophils Absolute Auto 100 /uL (0-450); Eosinophils Percent Auto 1.2 % (2-4); Hematocrit 34.1 % (41-53); Hemoglobin 10.5 g/dL (13.5-17.5); Lymphocytes Absolute Auto 2900 /uL (1100-4500); Mean Corpuscular HGB Conc 30.7 % (30-36); Mean Corpuscular Volume 71.5 fL (80-100); Monocytes Absolute Auto 900 /uL (0-900); Monocytes Percent Auto 9.1 % (3-14); Neutrophils Absolute Auto 6300 /uL (1500-7000); Neutrophils Percent Auto 60.9 % (50-75); Platelet Count 394 X10^3/uL (150-400); Red Blood Cell Count 4.78 X10^6/uL (4.5-5.9); Red Cell Distribution Width 17.2 % (11.6-14.8); White Blood Cell Count 10.3 X10^3/uL (4.5-11.0)
[2024-04-20 08:25] LABS: Alanine Aminotransferase 25 IU/L (<50); Albumin 4.3 g/dL (3.5-5.0); Albumin Globulin Ratio 1.5 (1.0-2.8); Alkaline Phosphatase 113 U/L (38-126); Aspartate Aminotransferase 30 IU/L (17-59); BUN Creatinine Ratio 14.9 (6-22); Bilirubin Total 0.7 mg/dL (0.2-1.3); Blood Urea Nitrogen 11 mg/dL (9-20); Calcium 8.9 mg/dL (8.4-10.2); Carbon Dioxide 24 mmol/L (22-32); Chloride 100 mmol/L (98-107); Cholesterol 115 mg/dL (140-199); Estimated Glomerular Filt Rate > 60 mL/min (>60); Globulin 2.8 g/dL (1.7-4.1); Glucose 109 mg/dL (80-110); HDL Cholesterol 41 mg/dL (40-60); HEMOLYSIS < 15 (0-50); LDL Cholesterol Calculated 46 mg/dL (<100); Potassium 4.3 mmol/L (3.4-5.1); Sodium 131 mmol/L (137-145); Total Protein 7.1 g/dL (6.3-8.2); Triglycerides 142 mg/dL (35-150)
== END ==
PROVIDERS: PCP Family Medicine; Referring Provider Family Medicine; Visit Provider Family Medicine
DX: I10 Essential (primary) hypertension (principal); Z00.00 Encounter for general adult medical examination without abnormal findings; E78.1 Pure hyperglyceridemia; D64.9 Anemia, unspecified
CPT/HCPCS: 36415; 80053; 80061; 85025